=== PATIENT | male | born 1980 | race Caucasian/White ===

== ENCOUNTER 2016-08-23 17:56 | Inpatient (IN) | payer SELFPAY ==
[2016-08-23] MEDS ORDERED: NS 1000 ML 1,000 ML ONE ×3 (18:03→20:16)
[2016-08-23] MEDS ORDERED: NS 1000 ML 1,000 ML IV ONE ×3 (18:10→20:15)
[2016-08-23 18:25] LABS: PLATELET COUNT 402 X10^3/uL (150.0-450.0)
[2016-08-23 18:29] LABS: ABG BASE EXCESS -22.6 mmol/L (-2.0-2.0)
[2016-08-23 18:31] LABS: ABG HCO3 4.1 mmol/L (22-26)
[2016-08-23 18:34] LABS: BASOPHILS # (AUTO) 0.2 X10^3/uL (0.0-0.1); BASOPHILS % (AUTO) 0.6 % (0.2-1.0); HEMATOCRIT 46.1 % (42.0-54.0); HEMOGLOBIN 15.1 g/dL (13.5-18.0); LYMPHOCYTES # (AUTO) 1.9 X10^3/uL (1.3-2.9); LYMPHOCYTES % (AUTO) 4.9 % (21.0-51.0); MEAN CORPUSCULAR HEMOGLOBIN 29.7 pg (27.0-34.0); MEAN CORPUSCULAR HGB CONC 32.8 g/dL (33.0-35.0); MEAN CORPUSCULAR VOLUME 90.5 fL (80.0-100.0); MONOCYTES # (AUTO) 2.7 x10^3/uL (0.3-0.8); MONOCYTES % (AUTO) 7.1 % (0.0-13.0); NEUTROPHILS # (AUTO) 33.4 x10^3/uL (2.2-4.8); NEUTROPHILS % (AUTO) 87.4 % (42.0-75.0); RED CELL DISTRIBUTION WIDTH 13.6 % (11.6-16.5); SERUM ACETONE MODERATE (NEGATIVE)
[2016-08-23 18:36] LABS: BLOOD UREA NITROGEN 13 mg/dL (7-18); CALCIUM 10.2 mg/dL (8.5-10.1); CHLORIDE 95 mmol/L (98-107); COR NA(FOR HYPERGLY) 137 mmol/L (136-145); CREATININE 1.25 mg/dL (0.70-1.30); GLUCOSE 480 mg/dL (65-99); SODIUM 128 mmol/L (136-145); eGFR BLACK RACES > 60 (>60); eGFR NON BLACK RACES > 60 (>60)
[2016-08-23 18:41] LABS: ALANINE AMINOTRANSFERASE 13 Units/L (12-78); ALBUMIN 2.9 g/dL (3.4-5.0); ALKALINE PHOSPHATASE 169 Units/L (46-116); ASPARTATE AMINO TRANSFERASE 8 Units/L (15-37); COR CA(FOR HYPOALB) 11.1 mg/dL (8.5-10.1); TOTAL PROTEIN 8.5 g/dL (6.4-8.2)
[2016-08-23 18:54] LABS: WHITE BLOOD COUNT 38.2 X10^3/uL (3.6-10.0)
[2016-08-23 19:13] LABS: BAND NEUTROPHILS % 1 % (0-10)
[2016-08-23 19:14] LABS: PLATELET MORPHOLOGY COMMENT NORMAL (NORMAL)
--- NOTE | 2016-08-23 19:45 | DR.GENAD ---
HPI - PCP Primary Care Physician: Nish DONALDSON - Complaint/Symptoms Chief Complaint Doctors Comments: Patient states that he has had DM for four to five years. He was on glyburide and metformin up to five months ago and he stopped taking his medication because he was involved in a relationship. This morning at 0300 he started vomiting and not feeling well and came to the ED. Chief Complaint:: PT. C/O N/V SINCE 3 AM. PT. C/O FATIGUE AND SHORTNESS OF BREATH. PT. SAYS HE HAS TWO RISINGS TO THE LEFT SIDE OF HIS GROIN WHICH ARE NOW BEGINNING TO DRAIN. THE AREA IS REDDENED AND HOT TO TOUCH. - Source History Provided: Patient - Mode of Arrival Mode of Arrival: Ambulatory - Timing Onset of Chief Complaint: 08/23/16 PMH - PMH Past Medical History: Yes Past Medical History: Diabetes, Dyslipidemia, Hypertension Past Surgical History: No Surgical History: No History - Family History History of Family Medical Conditions: No - Social History Does patient currently use any type of tobacco product: Yes Have you used tobacco products in the last 12 months: Yes Type of Tobacco Use: Cigarettes Does any household member use tobacco: No Alcohol Use: Rarely Do you use any recreational Drugs:: No Lives With: Family Lives Where: Home - infectious screening In the last 2 months have you had wt loss of >10#?: NO Have you had fever, night sweats or hemotysis?: No Have you traveled outside the country in the last 6 months?: No Isolation: Standard ROS - Review of Systems Constitutional: No Symptoms Reported Eyes: No Symptoms Reported ENTM: No Symptoms Reported. negative: Loose Teeth (upper extractions) Respiratoy: No Symptoms Reported Cardiovascular: No Symptoms Reported Gastrointestinal/Abdominal: No Symptoms Reported Genitourinary: No Symptoms Reported Neurological: No Symptoms Reported Musculoskeletal: No Symptoms Reported Integumentary: Rash (pustules on left lower abdomen, carbuncle ruptured) Hematologic/Lymphatic: No Symptoms Reported Endocrine: No Symptoms Reported Psychiatric: No Symptoms Reported All Other Systems: Reviewed and Negative PE - Vital Signs Vitals: Temperature 97.4 F Pulse Rate [Left Brachial] 127 Pulse Rate 148 Respiratory Rate 30 Blood Pressure [Left Arm] 158/87 Blood Pressure 151/82 O2 Sat by Pulse Oximetry 99 - General Limitations: No Limitations General Appearance: Alert - Head Head Exam: Normal Inspection, Atraumatic - Eyes Eye exam: Normal Appearance, PERRL, EOMI - Chest Chest Inspection: Normal Inspection, Symmetric Chest Wall Rise - Respiratory Respiratory Exam: Normal Lung Sounds Bilat (Kussmaul) Respiratory Exam: Bilateral Clear to Auscultation - Cardiovascular Cardiovascular Exam: Tachycardia - Abdominal Exam Abdominal Exam: Normal Inspection, Distention (folliculitis left lower abdomen) Abdominal Tenderness: LLQ - Extremities Extremities Exam: Normal Inspection - Back Back Exam: Normal Inspection - Neurologic Neurological Exam: Alert, Oriented X3, CN II-XII Intact - Psychiatric Psychiatric Exam: Normal Affect - Skin Skin Exam: Warm, Dry, Intact Course - Reevaluation 1st: Improved - Consultation Called: 08:00 (Admit, instructions given) ROR - Labs Reviewed Result Diagrams: 08/23/16 18:10 08/23/16 18:10 Laboratory: 08/23/16 18:25 Groin Gram Stain - Final WBC 38.2 X10^3/uL (3.6-10.0) H* 08/23/16 18:10 RBC 5.10 X10^6/uL (4.7-6.0) 08/23/16 18:10 Hgb 15.1 g/dL (13.5-18.0) 08/23/16 18:10 Hct 46.1 % (42.0-54.0) 08/23/16 18:10 MCV 90.5 fL (80.0-100.0) 08/23/16 18:10 MCH 29.7 pg (27.0-34.0) 08/23/16 18:10 MCHC 32.8 g/dL (33.0-35.0) L 08/23/16 18:10 RDW 13.6 % (11.6-16.5) 08/23/16 18:10 Plt Count 402 X10^3/uL (150.0-450.0) 08/23/16 18:10 Plt Count Comment Adequate (ADEQUATE) 08/23/16 18:10 MPV 9.0 fL (7.4-11.0) 08/23/16 18:10 Neut % 87.4 % (42.0-75.0) H 08/23/16 18:10 Lymph % 4.9 % (21.0-51.0) L 08/23/16 18:10 [place] % 7.1 % (0.0-13.0) 08/23/16 18:10 Eos % 0.0 % (0.9-2.9) L 08/23/16 18:10 Baso % 0.6 % (0.2-1.0) 08/23/16 18:10 Neut # 33.4 x10^3/uL (2.2-4.8) H 08/23/16 18:10 Lymph # 1.9 X10^3/uL (1.3-2.9) 08/23/16 18:10 [place] # 2.7 x10^3/uL (0.3-0.8) H 08/23/16 18:10 Eos # 0.0 x10^3/uL (0.0-0.2) 08/23/16 18:10 Baso # 0.2 X10^3/uL (0.0-0.1) H 08/23/16 18:10 Absolute Nucleated RBC 0.0 /100WBC 08/23/16 18:10 Total Counted 100 08/23/16 18:10 Neutrophils % (Manual) 83 % (39-76) H 08/23/16 18:10 Band Neutrophils % 1 % (0-10) 08/23/16 18:10 Lymphocytes % (Manual) 10 % (13-43) L 08/23/16 18:10 Monocytes % (Manual) 6 % (4-9) 08/23/16 18:10 Plt Morphology Comment Normal (NORMAL) 08/23/16 18:10 RBC Morphology Normal (NORMAL) 08/23/16 18:10 Sample Site Left brachial 08/23/16 18:21 ABG pH 7.140 (7.35-7.45) L* 08/23/16 18:21 ABG pCO2 12.0 mmHg (35.0-45.0) L* 08/23/16 18:21 ABG pO2 111.0 mmHg (80.0-100.0) H 08/23/16 18:21 ABG HCO3 4.1 mmol/L (22-26) L* 08/23/16 18:21 ABG O2 Saturation 97.0 % (90-100) 08/23/16 18:21 ABG Base Excess -22.6 mmol/L (-2.0-2.0) L 08/23/16 18:21 Slick Test Na 08/23/16 18:21 A-a Gradient 24.0 mmHg 08/23/16 18:21 FiO2 21.000 08/23/16 18:21 Blood Gas Comments Zack well aw 08/23/16 18:21 Sodium 128 mmol/L (136-145) L 08/23/16 18:10 Corrected Sodium 137 mmol/L (136-145) 08/23/16 18:10 Potassium 4.6 mmol/L (3.5-5.1) 08/23/16 18:10 Chloride 95 mmol/L (98-107) L 08/23/16 18:10 Carbon Dioxide 5.0 mmol/L (21-32) L* 08/23/16 18:10 BUN 13 mg/dL (7-18) 08/23/16 18:10 Creatinine 1.25 mg/dL (0.70-1.30) 08/23/16 18:10 Est GFR (MDRD) Af Amer > 60 (>60) 08/23/16 18:10 Est GFR (MDRD) Non-Af > 60 (>60) 08/23/16 18:10 Glucose 480 mg/dL (65-99) H 08/23/16 18:10 Calcium 10.2 mg/dL (8.5-10.1) H 08/23/16 18:10 Corrected Calcium 11.1 mg/dL (8.5-10.1) H 08/23/16 18:10 Phosphorus 3.5 mg/dL (2.6-4.7) 08/23/16 19:10 Magnesium 1.7 mg/dL (1.7-2.9) 08/23/16 19:10 Total Bilirubin 0.40 mg/dL (0.2-1.0) 08/23/16 18:10 AST 8 Units/L (15-37) L 08/23/16 18:10 ALT 13 Units/L (12-78) 08/23/16 18:10 Alkaline Phosphatase 169 Units/L (46-116) H 08/23/16 18:10 C-Reactive Protein 1226.70 mg/L (0-3.0) H 08/23/16 18:10 Total Protein 8.5 g/dL (6.4-8.2) H 08/23/16 18:10 Albumin 2.9 g/dL (3.4-5.0) L 08/23/16 18:10 Globulin 5.6 g/dL (2.5-4.5) H 08/23/16 18:10 Albumin/Globulin Ratio 0.5 Ratio (1.1-2.1) L 08/23/16 18:10 Acetone, Semi-Quant Moderate (NEGATIVE) H 08/23/16 18:10 - Diagnosis Discharge Problem: DKA (diabetic ketoacidoses) Qualifiers: Diabetes mellitus type: type 2 Diabetes mellitus complication detail: without coma Qualified Code(s): E13.10 - Other specified diabetes mellitus with ketoacidosis without coma - Discharge Plan Condition: Stable - Follow ups/Referrals Follow ups/Referrals: MELVIN DONALDSON [Primary Care Provider] - 3 days - Instructions
[2016-08-23 19:46] LABS: MAGNESIUM 1.7 mg/dL (1.7-2.9); PHOSPHORUS 3.5 mg/dL (2.6-4.7)
[2016-08-23] MEDS ORDERED: SODIUM BICARBONATE 8.4% INJ ADULT ONE (20:16)
[2016-08-23 20:21] LABS: BILIRUBIN,URINE NEGATIVE (NEGATIVE); BLOOD/HEMOGLOBIN,URINE 3+ (NEGATIVE); GLUCOSE, URINE 4+ (NEGATIVE); KETONES,URINE 4+ (NEGATIVE); LEUKOCYTE ESTERASE ,URINE NEGATIVE (NEGATIVE); NITRITES,URINE NEGATIVE (NEGATIVE); PROTEIN,URINE 3+ (NEGATIVE); UROBILINOGEN,URINE NORMAL (NORMAL)
[2016-08-23] MEDS ORDERED: HUMULIN R IV ONE (20:28)
--- NOTE | 2016-08-23 20:28 | RAD ---
Chest AP portable Indication: Dyspnea. Diabetes ketoacidosis. Findings: Heart size is normal for technique and body habitus. There is no pneumothorax or effusion. No dense consolidation is seen. Vague right infrahilar opacity could represent developing infiltrat e. Overlapping vessels may appear similar. Impression: Question right infrahilar infiltrate. Followup with PA and lateral chest to clarify. Reported By:
[2016-08-23] MEDS ORDERED: HUMULIN R ONE ×2 (20:34→20:56)
[2016-08-23 20:41] LABS: APPEARANCE,URINE SLIGHTLY HAZY (CLEAR); BACTERIA,URINE 1+ /HPF (NEGATIVE); COLOR,URINE YELLOW (YELLOW); GRANULAR CASTS,URINE FEW /LPF (NEGATIVE); RBC,URINE 0-3 /HPF (NEGATIVE); SQUAMOUS EPITHELIAL CELL,UR RARE /HPF (NEGATIVE)
[2016-08-23] MEDS ORDERED: NS 100 ML IV 100 ML IV ONE (20:56)
[2016-08-23] MEDS: HUMULIN R 100 UNITS in NS 100 ML IV 100 ML IV PRN (21:25)
[2016-08-23 21:49] LABS: ABG ALLEN TEST POS; ABG BASE EXCESS -21.4 mmol/L (-2.0-2.0); FRACTIONATED INSPIRED OXYGEN 21
[2016-08-23 21:51] LABS: BLOOD UREA NITROGEN 12 mg/dL (7-18); CALCIUM 9.5 mg/dL (8.5-10.1); CHLORIDE 101 mmol/L (98-107); COR NA(FOR HYPERGLY) 140 mmol/L (136-145); GLUCOSE 364 mg/dL (65-99); SODIUM 134 mmol/L (136-145); eGFR BLACK RACES > 60 (>60); eGFR NON BLACK RACES > 60 (>60)
[2016-08-23 21:55] LABS: CARBON DIOXIDE 6.9 mmol/L (21-32)
[2016-08-23 21:58] VITALS: BMI 36.6
[2016-08-24 01:13] LABS: BLOOD UREA NITROGEN 10 mg/dL (7-18); CALCIUM 9.3 mg/dL (8.5-10.1); CHLORIDE 103 mmol/L (98-107); COR NA(FOR HYPERGLY) 140 mmol/L (136-145); CREATININE 0.94 mg/dL (0.70-1.30); GLUCOSE 261 mg/dL (65-99); SODIUM 136 mmol/L (136-145); eGFR BLACK RACES > 60 (>60); eGFR NON BLACK RACES > 60 (>60)
[2016-08-24 01:15] LABS: CARBON DIOXIDE 13.4 mmol/L (21-32)
[2016-08-24] MEDS ORDERED: NS + KCL 20 MEQ/L 1,000 ML IV ONE (01:19)
[2016-08-24] MEDS: NS + KCL 20 MEQ/L 1,000 ML IV SCH ×6 (01:24→22:30)
--- NOTE | 2016-08-24 02:25 | RAD ---
EXAM: Chest X-ray INDICATION: Shortness of breath COMPARISION: Prior exam from August 23, 2016 TECHNIQUE: PA and Lat, 2 view FINDINGS: The lungs are clear and the lung volumes are within normal limits. No pleural effusion or pneumothor ax. The cardiac silhouette and mediastinum are normal. The regional skeleton is intact. IMPRESSION: Normal Chest X-Ray Reported By:
[2016-08-24 05:03] LABS: ABG ALLEN TEST POS; ABG BASE EXCESS -14.5 mmol/L (-2.0-2.0); ABG HCO3 10.6 mmol/L (22-26); FRACTIONATED INSPIRED OXYGEN 21
[2016-08-24 06:32] LABS: BLOOD UREA NITROGEN 10 mg/dL (7-18); CALCIUM 9.3 mg/dL (8.5-10.1); CHLORIDE 104 mmol/L (98-107); COR NA(FOR HYPERGLY) 137 mmol/L (136-145); GLUCOSE 228 mg/dL (65-99); SODIUM 134 mmol/L (136-145); eGFR BLACK RACES > 60 (>60); eGFR NON BLACK RACES > 60 (>60)
[2016-08-24 06:43] LABS: BASOPHILS # (AUTO) 0.1 X10^3/uL (0.0-0.1); BASOPHILS % (AUTO) 0.5 % (0.2-1.0); EOSINOPHILS % (AUTO) 0.1 % (0.9-2.9); HEMATOCRIT 37.7 % (42.0-54.0); HEMOGLOBIN 12.8 g/dL (13.5-18.0); LYMPHOCYTES # (AUTO) 1.7 X10^3/uL (1.3-2.9); LYMPHOCYTES % (AUTO) 7.5 % (21.0-51.0); MEAN CORPUSCULAR HGB CONC 33.9 g/dL (33.0-35.0); MEAN CORPUSCULAR VOLUME 88.4 fL (80.0-100.0); MEAN PLATELET VOLUME 8.9 fL (7.4-11.0); MONOCYTES # (AUTO) 1.5 x10^3/uL (0.3-0.8); MONOCYTES % (AUTO) 6.9 % (0.0-13.0); NEUTROPHILS # (AUTO) 18.9 x10^3/uL (2.2-4.8); PLATELET COUNT 256 X10^3/uL (150.0-450.0); RED BLOOD COUNT 4.26 X10^6/uL (4.7-6.0); RED CELL DISTRIBUTION WIDTH 13.4 % (11.6-16.5)
[2016-08-24 06:47] LABS: CARBON DIOXIDE 11.1 mmol/L (21-32); WHITE BLOOD COUNT 22.2 X10^3/uL (3.6-10.0)
[2016-08-24 06:58] LABS: BAND NEUTROPHILS % 6 % (0-10)
[2016-08-24 06:59] LABS: PLATELET MORPHOLOGY COMMENT NORMAL (NORMAL)
[2016-08-24 09:41] LABS: BLOOD UREA NITROGEN 10 mg/dL (7-18); CALCIUM 8.8 mg/dL (8.5-10.1); CHLORIDE 102 mmol/L (98-107); COR NA(FOR HYPERGLY) 136 mmol/L (136-145); CREATININE 0.72 mg/dL (0.70-1.30); GLUCOSE 310 mg/dL (65-99); SODIUM 131 mmol/L (136-145); eGFR BLACK RACES > 60 (>60); eGFR NON BLACK RACES > 60 (>60)
[2016-08-24 09:48] LABS: CARBON DIOXIDE 11.4 mmol/L (21-32)
[2016-08-24 13:24] LABS: ABG BASE EXCESS -13.3 mmol/L (-2.0-2.0); ABG HCO3 10.8 mmol/L (22-26)
[2016-08-24 13:25] LABS: ABG ALLEN TEST POS
[2016-08-24] MEDS ORDERED: MORPHINE SULFATE INJ 2 MG IVP PRN (13:57)
[2016-08-24] MEDS: LEVAQUIN PREMIX IV 500 MG 500 MG/100 ML BAG IV SCH (14:18)
--- NOTE | 2016-08-24 15:28 | VAS ---
HISTORY: Left lower extremity redness and swelling Study: Left lower extremity venous Doppler Comparison: None TECHNIQUE: Multiple pack scale and color flow Doppler images of the deep venous system were obtaine d of the left lower extremity. FINDINGS: The deep venous system of the left lower extremity was evaluated from the level of the common femora l vein through the popliteal vein. Normal color flow and augmentation can be observed. In addition , normal compression is seen throughout the deep venous system. IMPRESSION: 1. Negative for DVT. Reported By:
[2016-08-24] MEDS: HUMULIN R 100 UNITS in NS 100 ML IV 100 ML IV PRN (17:04)
--- NOTE | 2016-08-24 18:13 | DR.H&P ---
H&P - History & Physical for Day of: H&P Date: 08/23/16 - Chief Complaint Chief Complaint: weakness, "boils to groin" - Allergies Allergies/Adverse Reactions: Allergies Allergy/AdvReac Type Severity Reaction Status Date / Time No Known Drug Allergy Allergy Verified 08/23/16 18:00 - History of Present Illness History of Present Illness: patient is a 36-year-old white male who presented to the emergency room with complaints of rash/moles to his groin. Patient complains of weakness on his stomach for several days. Patient has a past medical history of diabetes and hypertension but has not been on medication for several months. Patient states the onset of rash has been approximately a week. Now patient has increased redness and multiple pustules to left inner thigh and left groin. Labs collected in the emergency room revealed patient was in DKA. Patient was admitted to ICU for IV hydration and insulin drip. - Past Medical History Past Medical History: Diabetes, Dyslipidemia, Hypertension - Past Surgical History Surgical History: No History - Family History Family Medical History: Diabetes Mellitus, Hypertension - Social History Does patient currently use any type of tobacco product: Yes Have you used tobacco products in the last 12 months: Yes Type of Tobacco Use: Cigarettes How many years tobacco product used: 13 Does any household member use tobacco: No Alcohol Use: Occasionally Drug Use: None - Medications Home Medications: NK [NK] 08/23/16 [History Confirmed 08/23/16] - Review of Systems Constitutional: Weakness ENT: No Symptoms Reported Respiratory: No Symptoms Reported Cardiovascular: No Symptoms Reported Gastrointestinal: Nausea, Vomiting Genitourinary: Frequency Musculoskeletal: Leg Pain Skin: Rash Neurological: Weakness - Physical Exam Vital Signs: Temperature 99.7 F Pulse Rate [Right Brachial] 116 Respiratory Rate 20 Blood Pressure [Right Arm] 112/66 O2 Sat by Pulse Oximetry 99 Oriented: Normal Eyes: Normal Ear: Normal Nose: Normal Throat: Dry Respiratory: Clear Throughout Cardiovascular: Normal, Edema (bilater le +2) : Normal Auscultation: Bowel Sounds: Normal Palpation: Normal Tenderness: Normal Skin: Rash (scattered pustules to left anaid with larger 1cm abcess to groin with purulent d/c severe tenderness), Red (large area of rednes with increase warmth to left midthigh) Musculoskeletal: Leg Psychiatric: Anxiety Speech Pattern: Clear, Appropriate - Assessment/Plan (1) DKA (diabetic ketoacidoses) Qualifiers: Diabetes mellitus type: type 2 Diabetes mellitus complication detail: without coma Qualified Code(s): E13.10 - Other specified diabetes mellitus with ketoacidosis without coma Status: Acute Plan: admit icu, iv insulin drip and iv hydration. bs per protocol. bp control , repeat am labs, cardiac monitoring. abg, o2 (2) Hyponatremia Status: Acute (3) Cellulitis Qualifiers: Site of cellulitis: S Site of cellulitis of extremity: S Site of cellulitis of trunk: S Laterality: L Status: Acute
--- NOTE | 2016-08-24 18:18 | PCM.PROG ---
Progress Note - Progress Note for Day of Date: 08/24/16 - Subjective Subjective: patient complaining of nausea and severe left groin and thigh pain. Patient is a 36-year-old white male who was admitted late last night from the emergency room in [facility] BEDS AT THE [facility]. Plan to obtain ultrasound of left lower extremity and start IV Levaquin or cellulitis. Will repeat a.m. labs and continue blood sugar control and pain control and IV hydration - Past Medical Family Social History Past Med/Fam/Surg Hx: No changes since H&P Allergies: Allergies No Known Drug Allergy Allergy (Verified 08/23/16 18:00) - Review of Systems ROS: No change since H&P - Vital Signs and I&O's Vital Signs: Temperature 99.7 F Pulse Rate [Right Brachial] 116 Respiratory Rate 20 Blood Pressure [Right Arm] 112/66 O2 Sat by Pulse Oximetry 99 Intake and Output: Intake & Output 08/22/16 08/23/16 08/24/16 08/25/16 11:59 11:59 11:59 11:59 Intake Total 1770 2140 Output Total 1560 800 Balance 210 1340 - Physical Exam Oriented: Normal Eyes: Normal Ear: Normal Nose: Normal Throat: Dry Respiratory: Normal Cardiovascular: Normal, Edema (bilater le +2) : Normal Auscultation: Bowel Sounds: Normal Tenderness: Normal Skin: Rash (scattered pustules to left anaid with larger 1cm abcess to groin with purulent d/c severe tenderness), Red (large area of rednes with increase warmth to left midthigh) Musculoskeletal: Leg Psychiatric: Anxiety Speech Pattern: Clear, Appropriate - Laboratory and Diagnostics Result Diagrams: 08/24/16 05:40 08/24/16 09:10 Labs: 08/23/16 21:00 Urine,Clean Catch Urine Culture - Preliminary Laboratory WBC 22.2 X10^3/uL (3.6-10.0) H* 08/24/16 05:40 RBC 4.26 X10^6/uL (4.7-6.0) L 08/24/16 05:40 Hgb 12.8 g/dL (13.5-18.0) L 08/24/16 05:40 Hct 37.7 % (42.0-54.0) L 08/24/16 05:40 MCV 88.4 fL (80.0-100.0) 08/24/16 05:40 MCH 30.0 pg (27.0-34.0) 08/24/16 05:40 MCHC 33.9 g/dL (33.0-35.0) 08/24/16 05:40 RDW 13.4 % (11.6-16.5) 08/24/16 05:40 Plt Count 256 X10^3/uL (150.0-450.0) 08/24/16 05:40 Plt Count Comment Adequate (ADEQUATE) 08/24/16 05:40 MPV 8.9 fL (7.4-11.0) 08/24/16 05:40 Neut % 85.0 % (42.0-75.0) H 08/24/16 05:40 Lymph % 7.5 % (21.0-51.0) L 08/24/16 05:40 [place] % 6.9 % (0.0-13.0) 08/24/16 05:40 Eos % 0.1 % (0.9-2.9) L 08/24/16 05:40 Baso % 0.5 % (0.2-1.0) 08/24/16 05:40 Neut # 18.9 x10^3/uL (2.2-4.8) H 08/24/16 05:40 Lymph # 1.7 X10^3/uL (1.3-2.9) 08/24/16 05:40 [place] # 1.5 x10^3/uL (0.3-0.8) H 08/24/16 05:40 Eos # 0.0 x10^3/uL (0.0-0.2) 08/24/16 05:40 Baso # 0.1 X10^3/uL (0.0-0.1) 08/24/16 05:40 Absolute Nucleated RBC 0.0 /100WBC 08/24/16 05:40 Total Counted 100 08/24/16 05:40 Neutrophils % (Manual) 74 % (39-76) 08/24/16 05:40 Band Neutrophils % 6 % (0-10) 08/24/16 05:40 Lymphocytes % (Manual) 16 % (13-43) 08/24/16 05:40 Monocytes % (Manual) 4 % (4-9) 08/24/16 05:40 Plt Morphology Comment Normal (NORMAL) 08/24/16 05:40 RBC Morphology Normal (NORMAL) 08/24/16 05:40 Sample Site Rra 08/24/16 13:00 ABG pH 7.320 (7.35-7.45) L 08/24/16 13:00 ABG pCO2 21.0 mmHg (35.0-45.0) L 08/24/16 13:00 ABG pO2 68.0 mmHg (80.0-100.0) L 08/24/16 13:00 ABG HCO3 10.8 mmol/L (22-26) L* 08/24/16 13:00 ABG O2 Saturation 92.0 % (90-100) 08/24/16 13:00 ABG Base Excess -13.3 mmol/L (-2.0-2.0) L 08/24/16 13:00 Slick Test Pos 08/24/16 13:00 A-a Gradient 55.0 mmHg 08/24/16 13:00 FiO2 21.000 08/24/16 13:00 Blood Gas Comments Zack wel cs 08/24/16 13:00 Sodium 131 mmol/L (136-145) L 08/24/16 09:10 Corrected Sodium 136 mmol/L (136-145) 08/24/16 09:10 Potassium 4.3 mmol/L (3.5-5.1) 08/24/16 09:10 Chloride 102 mmol/L (98-107) 08/24/16 09:10 Carbon Dioxide 11.4 mmol/L (21-32) L* 08/24/16 09:10 BUN 10 mg/dL (7-18) 08/24/16 09:10 Creatinine 0.72 mg/dL (0.70-1.30) 08/24/16 09:10 Est GFR (MDRD) Af Amer > 60 (>60) 08/24/16 09:10 Est GFR (MDRD) Non-Af > 60 (>60) 08/24/16 09:10 Glucose 310 mg/dL (65-99) H 08/24/16 09:10 Calcium 8.8 mg/dL (8.5-10.1) 08/24/16 09:10 Corrected Calcium 11.1 mg/dL (8.5-10.1) H 08/23/16 18:10 Phosphorus 3.5 mg/dL (2.6-4.7) 08/23/16 19:10 Magnesium 1.7 mg/dL (1.7-2.9) 08/23/16 19:10 Total Bilirubin 0.40 mg/dL (0.2-1.0) 08/23/16 18:10 AST 8 Units/L (15-37) L 08/23/16 18:10 ALT 13 Units/L (12-78) 08/23/16 18:10 Alkaline Phosphatase 169 Units/L (46-116) H 08/23/16 18:10 C-Reactive Protein 1226.70 mg/L (0-3.0) H 08/23/16 18:10 Total Protein 8.5 g/dL (6.4-8.2) H 08/23/16 18:10 Albumin 2.9 g/dL (3.4-5.0) L 08/23/16 18:10 Globulin 5.6 g/dL (2.5-4.5) H 08/23/16 18:10 Albumin/Globulin Ratio 0.5 Ratio (1.1-2.1) L 08/23/16 18:10 Specimen Type Clean catch urine 08/23/16 20:03 Urine Color Yellow (YELLOW) 08/23/16 20:03 Urine Appearance Slightly hazy (CLEAR) 08/23/16 20:03 Urine pH 5.0 (5.0 - 8.0) 08/23/16 20:03 Ur Specific Carlos 1.020 (1.000-1.030) 08/23/16 20:03 Urine Protein 3+ (NEGATIVE) 08/23/16 20:03 Urine Glucose (UA) 4+ (NEGATIVE) 08/23/16 20:03 Urine Ketones 4+ (NEGATIVE) 08/23/16 20:03 Urine Occult Blood 3+ (NEGATIVE) 08/23/16 20:03 Urine Nitrite Negative (NEGATIVE) 08/23/16 20:03 Urine Bilirubin Negative (NEGATIVE) 08/23/16 20:03 Urine Acetone Large (NEGATIVE) 08/24/16 05:20 Urine Urobilinogen Normal (NORMAL) 08/23/16 20:03 Ur Leukocyte Esterase Negative (NEGATIVE) 08/23/16 20:03 Urine RBC 0-3 /HPF (NEGATIVE) 08/23/16 20:03 Urine WBC 0-3 /HPF (NEGATIVE) 08/23/16 20:03 Ur Squamous Epith Cells Rare /HPF (NEGATIVE) 08/23/16 20:03 Urine Bacteria 1+ /HPF (NEGATIVE) 08/23/16 20:03 Granular Casts Few /LPF (NEGATIVE) 08/23/16 20:03 Ur Culture Indicated? No/not indicated 08/23/16 20:03 Acetone, Semi-Quant Moderate (NEGATIVE) H 08/23/16 18:10 - Plan (1) DKA (diabetic ketoacidoses) Status: Acute Qualifiers: Diabetes mellitus type: type 2 Diabetes mellitus complication detail: without coma Qualified Code(s): E13.10 - Other specified diabetes mellitus with ketoacidosis without coma Plan: CONTINUE iv insulin drip and iv hydration. bs per protocol. bp control, repeat am labs, cardiac monitoring. abg, o2, SERUM ACETONE Q AM (2) Hyponatremia Status: Acute Plan: CONTINUE IV HYDRATION, ENCOURAGE ORAL HYDRATION. CHECK BMP THIS AFTERNOON. REPEAT AM CMP (3) Cellulitis Status: Acute Qualifiers: Site of cellulitis: S Site of cellulitis of extremity: S Site of cellulitis of trunk: S Laterality: L Plan: WOUND CULTURE, IV LEVAQUIN. REPEAT AM LABS
[2016-08-24 19:05] LABS: HEMOGLOBIN A1C 11.7 % (4.5-6.2)
[2016-08-24 19:08] LABS: BLOOD UREA NITROGEN 8 mg/dL (7-18); CALCIUM 9.1 mg/dL (8.5-10.1); CHLORIDE 100 mmol/L (98-107); COR NA(FOR HYPERGLY) 135 mmol/L (136-145); CREATININE 0.65 mg/dL (0.70-1.30); GLUCOSE 222 mg/dL (65-99); SODIUM 132 mmol/L (136-145); eGFR BLACK RACES > 60 (>60); eGFR NON BLACK RACES > 60 (>60)
[2016-08-24 19:10] LABS: SERUM ACETONE SMALL (NEGATIVE)
[2016-08-24 19:16] LABS: LACTIC ACID 1.3 mmol/L (0.4-2.0)
[2016-08-24 19:30] LABS: FREE T4 (FREE THYROXINE) 1.09 ng/dL (0.76-1.46); TSH (3RD GENERATION) 0.507 uIU/mL (0.358-3.74)
[2016-08-24] MEDS: SNACK - Diabetic Appropriate PO SCH (19:56)
[2016-08-24] MEDS ORDERED: SNACK - Diabetic Appropriate PO SCH (20:00)
[2016-08-24 21:54] LABS: ABG BASE EXCESS -12.5 mmol/L (-2.0-2.0)
[2016-08-24] MEDS: LEVEMIR SC SCH (21:58)
[2016-08-24] MEDS: NORCO 7.5/325 MG TAB PO PRN (22:45)
[2016-08-25] MEDS: NS + KCL 20 MEQ/L 1,000 ML IV SCH ×5 (04:01→20:17)
[2016-08-25 06:21] LABS: BASOPHILS # (AUTO) 0.1 X10^3/uL (0.0-0.1); BASOPHILS % (AUTO) 0.6 % (0.2-1.0); EOSINOPHILS # (AUTO) 0.1 x10^3/uL (0.0-0.2); EOSINOPHILS % (AUTO) 0.6 % (0.9-2.9); HEMATOCRIT 37.1 % (42.0-54.0); HEMOGLOBIN 12.6 g/dL (13.5-18.0); LYMPHOCYTES # (AUTO) 1.8 X10^3/uL (1.3-2.9); LYMPHOCYTES % (AUTO) 10.7 % (21.0-51.0); MEAN CORPUSCULAR HEMOGLOBIN 29.8 pg (27.0-34.0); MEAN CORPUSCULAR VOLUME 87.9 fL (80.0-100.0); MEAN PLATELET VOLUME 8.8 fL (7.4-11.0); MONOCYTES # (AUTO) 1.1 x10^3/uL (0.3-0.8); MONOCYTES % (AUTO) 6.8 % (0.0-13.0); NEUTROPHILS # (AUTO) 13.7 x10^3/uL (2.2-4.8); NEUTROPHILS % (AUTO) 81.3 % (42.0-75.0); PLATELET COUNT 247 X10^3/uL (150.0-450.0); RED BLOOD COUNT 4.23 X10^6/uL (4.7-6.0); RED CELL DISTRIBUTION WIDTH 13.4 % (11.6-16.5); WHITE BLOOD COUNT 16.9 X10^3/uL (3.6-10.0)
[2016-08-25 06:34] LABS: ALANINE AMINOTRANSFERASE 15 Units/L (12-78); ALBUMIN 1.8 g/dL (3.4-5.0); ALKALINE PHOSPHATASE 116 Units/L (46-116); ASPARTATE AMINO TRANSFERASE 16 Units/L (15-37); BLOOD UREA NITROGEN 7 mg/dL (7-18); CALCIUM 8.5 mg/dL (8.5-10.1); CARBON DIOXIDE 15.7 mmol/L (21-32); CHLORIDE 102 mmol/L (98-107); COR CA(FOR HYPOALB) 10.3 mg/dL (8.5-10.1); COR NA(FOR HYPERGLY) 135 mmol/L (136-145); CREATININE 0.61 mg/dL (0.70-1.30); GLUCOSE 186 mg/dL (65-99); SODIUM 133 mmol/L (136-145); TOTAL PROTEIN 6.3 g/dL (6.4-8.2); eGFR BLACK RACES > 60 (>60); eGFR NON BLACK RACES > 60 (>60)
[2016-08-25 07:07] LABS: BAND NEUTROPHILS % 4 % (0-10)
[2016-08-25 07:08] LABS: ERYTHROCYTE SEDIMENTATION RATE 85 MM/HOUR (0-15); PLATELET MORPHOLOGY COMMENT NORMAL (NORMAL)
[2016-08-25] MEDS: LEVAQUIN PREMIX IV 500 MG 500 MG/100 ML BAG IV SCH (09:15)
[2016-08-25] MEDS ORDERED: NS 1000 ML 1,000 ML IV ONE (18:41)
--- NOTE | 2016-08-25 18:44 | PCM.PROG ---
Progress Note - Progress Note for Day of Date: 08/25/16 - Subjective Subjective: patient complaining of nausea and severe left groin and thigh pain. Patient is a 36-year-old white male who was admitted late last night from the emergency room in [facility]. patient was started on Levemir last p.m., blood sugar slightly improved through the night. We'll continue IV hydration, increased redness to left thigh. Levaquin and start vancomycin. Continue wound care, pain control. Repeat a.m. labs - Past Medical Family Social History Past Med/Fam/Surg Hx: No changes since H&P Allergies: Allergies No Known Drug Allergy Allergy (Verified 08/23/16 18:00) - Review of Systems ROS: No change since H&P - Vital Signs and I&O's Vital Signs: Temperature 98.8 F Pulse Rate [Right Brachial] 114 Respiratory Rate 20 Blood Pressure [Right Arm] 134/74 O2 Sat by Pulse Oximetry 99 Intake and Output: Intake & Output 08/23/16 08/24/16 08/25/16 08/26/16 11:59 11:59 11:59 11:59 Intake Total 1770 5685 1978 Output Total 1560 2100 1050 Balance 210 3585 928 - Physical Exam Oriented: Normal Eyes: Normal Ear: Normal Nose: Normal Throat: Dry Respiratory: Normal Cardiovascular: Normal, Edema (bilater le +2) : Normal Auscultation: Bowel Sounds: Normal Tenderness: Normal Skin: Rash (scattered pustules to left anaid with larger 1cm abcess to groin with purulent d/c severe tenderness), Red (large area of rednes with increase warmth to left midthigh) Musculoskeletal: Leg Psychiatric: Anxiety Speech Pattern: Clear, Appropriate - Laboratory and Diagnostics Result Diagrams: 08/25/16 05:20 08/25/16 05:20 Labs: 08/23/16 21:00 Urine,Clean Catch Urine Culture - Final Laboratory WBC 16.9 X10^3/uL (3.6-10.0) H 08/25/16 05:20 RBC 4.23 X10^6/uL (4.7-6.0) L 08/25/16 05:20 Hgb 12.6 g/dL (13.5-18.0) L 08/25/16 05:20 Hct 37.1 % (42.0-54.0) L 08/25/16 05:20 MCV 87.9 fL (80.0-100.0) 08/25/16 05:20 MCH 29.8 pg (27.0-34.0) 08/25/16 05:20 MCHC 34.0 g/dL (33.0-35.0) 08/25/16 05:20 RDW 13.4 % (11.6-16.5) 08/25/16 05:20 Plt Count 247 X10^3/uL (150.0-450.0) 08/25/16 05:20 Plt Count Comment Adequate (ADEQUATE) 08/25/16 05:20 MPV 8.8 fL (7.4-11.0) 08/25/16 05:20 Neut % 81.3 % (42.0-75.0) H 08/25/16 05:20 Lymph % 10.7 % (21.0-51.0) L 08/25/16 05:20 [place] % 6.8 % (0.0-13.0) 08/25/16 05:20 Eos % 0.6 % (0.9-2.9) L 08/25/16 05:20 Baso % 0.6 % (0.2-1.0) 08/25/16 05:20 Neut # 13.7 x10^3/uL (2.2-4.8) H 08/25/16 05:20 Lymph # 1.8 X10^3/uL (1.3-2.9) 08/25/16 05:20 [place] # 1.1 x10^3/uL (0.3-0.8) H 08/25/16 05:20 Eos # 0.1 x10^3/uL (0.0-0.2) 08/25/16 05:20 Baso # 0.1 X10^3/uL (0.0-0.1) 08/25/16 05:20 Absolute Nucleated RBC 0.0 /100WBC 08/25/16 05:20 Total Counted 100 08/25/16 05:20 Neutrophils % (Manual) 78 % (39-76) H 08/25/16 05:20 Band Neutrophils % 4 % (0-10) 08/25/16 05:20 Lymphocytes % (Manual) 10 % (13-43) L 08/25/16 05:20 Monocytes % (Manual) 8 % (4-9) 08/25/16 05:20 Plt Morphology Comment Normal (NORMAL) 08/25/16 05:20 RBC Morphology Normal (NORMAL) 08/25/16 05:20 ESR 85 MM/HOUR (0-15) H 08/25/16 05:20 Sample Site Lbra 08/24/16 21:51 ABG pH 7.350 (7.35-7.45) 08/24/16 21:51 ABG pCO2 20.0 mmHg (35.0-45.0) L 08/24/16 21:51 ABG pO2 96.0 mmHg (80.0-100.0) 08/24/16 21:51 ABG HCO3 11.0 mmol/L (22-26) L* 08/24/16 21:51 ABG O2 Saturation 97.0 % (90-100) 08/24/16 21:51 ABG Base Excess -12.5 mmol/L (-2.0-2.0) L 08/24/16 21:51 Slick Test Na 08/24/16 21:51 A-a Gradient 29.0 mmHg 08/24/16 21:51 FiO2 21.000 08/24/16 21:51 Blood Gas Comments Zack abg well-mtf 08/24/16 21:51 Sodium 133 mmol/L (136-145) L 08/25/16 05:20 Corrected Sodium 135 mmol/L (136-145) L 08/25/16 05:20 Potassium 3.5 mmol/L (3.5-5.1) 08/25/16 05:20 Chloride 102 mmol/L (98-107) 08/25/16 05:20 Carbon Dioxide 15.7 mmol/L (21-32) L 08/25/16 05:20 BUN 7 mg/dL (7-18) 08/25/16 05:20 Creatinine 0.61 mg/dL (0.70-1.30) L 08/25/16 05:20 Est GFR (MDRD) Af Amer > 60 (>60) 08/25/16 05:20 Est GFR (MDRD) Non-Af > 60 (>60) 08/25/16 05:20 Glucose 186 mg/dL (65-99) H 08/25/16 05:20 Hemoglobin A1c 11.7 % (4.5-6.2) H 08/24/16 18:45 Lactic Acid 1.3 mmol/L (0.4-2.0) 08/24/16 18:45 Calcium 8.5 mg/dL (8.5-10.1) 08/25/16 05:20 Corrected Calcium 10.3 mg/dL (8.5-10.1) H 08/25/16 05:20 Phosphorus 3.5 mg/dL (2.6-4.7) 08/23/16 19:10 Magnesium 1.7 mg/dL (1.7-2.9) 08/23/16 19:10 Total Bilirubin 0.30 mg/dL (0.2-1.0) 08/25/16 05:20 AST 16 Units/L (15-37) 08/25/16 05:20 ALT 15 Units/L (12-78) 08/25/16 05:20 Alkaline Phosphatase 116 Units/L (46-116) 08/25/16 05:20 C-Reactive Protein 258.80 mg/L (0-3.0) H 08/25/16 05:20 Total Protein 6.3 g/dL (6.4-8.2) L 08/25/16 05:20 Albumin 1.8 g/dL (3.4-5.0) L 08/25/16 05:20 Globulin 4.5 g/dL (2.5-4.5) 08/25/16 05:20 Albumin/Globulin Ratio 0.4 Ratio (1.1-2.1) L 08/25/16 05:20 Free T4 1.09 ng/dL (0.76-1.46) 08/24/16 18:45 TSH 3rd Generation 0.507 uIU/mL (0.358-3.74) 08/24/16 18:45 Specimen Type Clean catch urine 08/23/16 20:03 Urine Color Yellow (YELLOW) 08/23/16 20:03 Urine Appearance Slightly hazy (CLEAR) 08/23/16 20:03 Urine pH 5.0 (5.0 - 8.0) 08/23/16 20:03 Ur Specific [place] 1.020 (1.000-1.030) 08/23/16 20:03 Urine Protein 3+ (NEGATIVE) 08/23/16 20:03 Urine Glucose (UA) 4+ (NEGATIVE) 08/23/16 20:03 Urine Ketones 4+ (NEGATIVE) 08/23/16 20:03 Urine Occult Blood 3+ (NEGATIVE) 08/23/16 20:03 Urine Nitrite Negative (NEGATIVE) 08/23/16 20:03 Urine Bilirubin Negative (NEGATIVE) 08/23/16 20:03 Urine Acetone Large (NEGATIVE) 08/24/16 05:20 Urine Urobilinogen Normal (NORMAL) 08/23/16 20:03 Ur Leukocyte Esterase Negative (NEGATIVE) 08/23/16 20:03 Urine RBC 0-3 /HPF (NEGATIVE) 08/23/16 20:03 Urine WBC 0-3 /HPF (NEGATIVE) 08/23/16 20:03 Ur Squamous Epith Cells Rare /HPF (NEGATIVE) 08/23/16 20:03 Urine Bacteria 1+ /HPF (NEGATIVE) 08/23/16 20:03 Granular Casts Few /LPF (NEGATIVE) 08/23/16 20:03 Ur Culture Indicated? No/not indicated 08/23/16 20:03 Acetone, Semi-Quant Small (NEGATIVE) H 08/24/16 18:45 - Plan (1) DKA (diabetic ketoacidoses) Status: Acute Qualifiers: Diabetes mellitus type: type 2 Diabetes mellitus complication detail: without coma Qualified Code(s): E13.10 - Other specified diabetes mellitus with ketoacidosis without coma Plan: CONTINUE iv insulin drip and iv hydration. bs per protocol. bp control, repeat am labs, cardiac monitoring. abg, o2, SERUM ACETONE Q AM (2) Hyponatremia Status: Acute Plan: CONTINUE IV HYDRATION, ENCOURAGE ORAL HYDRATION. CHECK BMP THIS AFTERNOON. REPEAT AM CMP (3) Cellulitis Status: Acute Qualifiers: Site of cellulitis: S Site of cellulitis of extremity: S Site of cellulitis of trunk: S Laterality: L Plan: WOUND CULTURE, IV vancomycin, consult pharmacy. REPEAT AM LABS
[2016-08-25] MEDS ORDERED: PHARMACY CONSULT - VANCOMYCIN XX SCH (19:00)
[2016-08-25] MEDS ORDERED: PHARMACY COMMENT IV SCH (19:30)
[2016-08-25] MEDS: HUMULIN R 100 UNITS in NS 100 ML IV 100 ML IV PRN (20:14)
[2016-08-25] MEDS: LEVEMIR SC SCH (20:18)
[2016-08-25] MEDS: SNACK - Diabetic Appropriate PO SCH (20:18)
[2016-08-25 20:27] LABS: CREATININE 0.61 mg/dL (0.70-1.30); VANCOMYCIN,TROUGH < 2.0 ug/mL (15-20)
[2016-08-25] MEDS ORDERED: D5W 250 ML IV 250 ML IV ONE (21:02)
[2016-08-25] MEDS ORDERED: VANCOMYCIN HCL 1 GM VIAL ONE (21:03)
[2016-08-25] MEDS: VANCOMYCIN HCL IV SCH (21:15)
[2016-08-25] MEDS: [UNRECOGNIZED DRUG - OTHER] IV SCH (21:15)
[2016-08-26] MEDS: NORCO 7.5/325 MG TAB PO PRN (00:16)
[2016-08-26] MEDS ORDERED: VANCOMYCIN HCL 1 GM VIAL ONE (06:02)
[2016-08-26] MEDS ORDERED: D5W 250 ML IV 250 ML IV ONE (06:02)
[2016-08-26] MEDS: NS + KCL 20 MEQ/L 1,000 ML IV SCH ×3 (06:12→19:06)
[2016-08-26] MEDS: [UNRECOGNIZED DRUG - OTHER] IV SCH (06:12)
[2016-08-26] MEDS: VANCOMYCIN HCL IV SCH ×2 (06:12→14:33)
[2016-08-26 06:18] LABS: SERUM ACETONE SMALL (NEGATIVE)
[2016-08-26 06:23] LABS: BASOPHILS # (AUTO) 0.1 X10^3/uL (0.0-0.1); BASOPHILS % (AUTO) 0.6 % (0.2-1.0); EOSINOPHILS # (AUTO) 0.1 x10^3/uL (0.0-0.2); EOSINOPHILS % (AUTO) 0.5 % (0.9-2.9); HEMATOCRIT 35.6 % (42.0-54.0); HEMOGLOBIN 12.2 g/dL (13.5-18.0); LYMPHOCYTES # (AUTO) 2.2 X10^3/uL (1.3-2.9); LYMPHOCYTES % (AUTO) 12.8 % (21.0-51.0); MEAN CORPUSCULAR HGB CONC 34.3 g/dL (33.0-35.0); MEAN CORPUSCULAR VOLUME 87.5 fL (80.0-100.0); MEAN PLATELET VOLUME 8.8 fL (7.4-11.0); MONOCYTES # (AUTO) 0.9 x10^3/uL (0.3-0.8); NEUTROPHILS # (AUTO) 14.2 x10^3/uL (2.2-4.8); NEUTROPHILS % (AUTO) 81.1 % (42.0-75.0); PLATELET COUNT 244 X10^3/uL (150.0-450.0); RED BLOOD COUNT 4.07 X10^6/uL (4.7-6.0); RED CELL DISTRIBUTION WIDTH 13.2 % (11.6-16.5); WHITE BLOOD COUNT 17.6 X10^3/uL (3.6-10.0)
[2016-08-26 06:57] LABS: ALANINE AMINOTRANSFERASE 26 Units/L (12-78); ALBUMIN 1.5 g/dL (3.4-5.0); ALKALINE PHOSPHATASE 122 Units/L (46-116); ASPARTATE AMINO TRANSFERASE 28 Units/L (15-37); BLOOD UREA NITROGEN 5 mg/dL (7-18); CALCIUM 8.3 mg/dL (8.5-10.1); CARBON DIOXIDE 19.1 mmol/L (21-32); CHLORIDE 102 mmol/L (98-107); COR CA(FOR HYPOALB) 10.3 mg/dL (8.5-10.1); COR NA(FOR HYPERGLY) 137 mmol/L (136-145); CREATININE 0.63 mg/dL (0.70-1.30); GLUCOSE 194 mg/dL (65-99); SODIUM 135 mmol/L (136-145); TOTAL PROTEIN 5.9 g/dL (6.4-8.2); eGFR BLACK RACES > 60 (>60); eGFR NON BLACK RACES > 60 (>60)
[2016-08-26 07:47] LABS: BAND NEUTROPHILS % 7 % (0-10)
[2016-08-26 07:48] LABS: PLATELET MORPHOLOGY COMMENT NORMAL (NORMAL)
--- NOTE | 2016-08-26 07:56 | RAD ---
Chest AP portable Indication: Leukocytosis Comparison: August 23, 2016. Findings: There is no pneumothorax or consolidation. Heart size is normal. Impression: No new acute chest process. Followup with PA and lateral chest for increased sensitivity . Reported By:
[2016-08-26] MEDS ORDERED: VANCOMYCIN HCL IV SCH (14:00)
[2016-08-26] MEDS ORDERED: NS IV SCH (14:00)
[2016-08-26] MEDS: NS IV SCH ×2 (14:33→20:14)
[2016-08-26] MEDS ORDERED: MAXIPIME 1 GM IV PREMIX 1 GM/50 ML BAG IV SCH (15:00)
[2016-08-26] MEDS: LOVENOX INJ 40 MG SYR SC SCH (15:03)
--- NOTE | 2016-08-26 15:38 | PCM.PROG ---
Progress Note - Progress Note for Day of Date: 08/26/16 - Subjective Subjective: patient complaining of left groin and thigh pain. Patient is a 36- year-old white male who was admitted late last night from the emergency room in [facility]. Patient's left thigh cellulitis noted to be much improved today plan to continue IV vancomycin and cefepime. We'll continue aggressive IV hydration and encourage oral hydration. Plan to repeat a.m. labs and continue blood sugar monitoring - Past Medical Family Social History Past Med/Fam/Surg Hx: No changes since H&P Allergies: Allergies No Known Drug Allergy Allergy (Verified 08/23/16 18:00) - Review of Systems ROS: No change since H&P - Vital Signs and I&O's Vital Signs: Temperature 99.2 F Pulse Rate [Right Brachial] 116 Respiratory Rate 24 Blood Pressure [Right Arm] 151/77 O2 Sat by Pulse Oximetry 98 Intake and Output: Intake & Output 08/24/16 08/25/16 08/26/16 08/27/16 11:59 11:59 11:59 11:59 Intake Total 1770 5685 4445 1980 Output Total 1560 2100 2450 950 Balance 210 3585 1995 1030 - Physical Exam Oriented: Normal Eyes: Normal Ear: Normal Nose: Normal Throat: Dry Respiratory: Normal Cardiovascular: Normal, Edema (bilater le +2) : Normal Auscultation: Bowel Sounds: Normal Tenderness: Normal Skin: Rash (scattered pustules to left anaid with larger 1cm abcess to groin with purulent d/c severe tenderness), Red (large area of rednes with increase warmth to left midthigh) Musculoskeletal: Leg Psychiatric: Anxiety Speech Pattern: Clear, Appropriate - Laboratory and Diagnostics Result Diagrams: 08/26/16 04:35 08/26/16 04:35 Labs: 08/23/16 21:00 Urine,Clean Catch Urine Culture - Final Laboratory WBC 17.6 X10^3/uL (3.6-10.0) H 08/26/16 04:35 RBC 4.07 X10^6/uL (4.7-6.0) L 08/26/16 04:35 Hgb 12.2 g/dL (13.5-18.0) L 08/26/16 04:35 Hct 35.6 % (42.0-54.0) L 08/26/16 04:35 MCV 87.5 fL (80.0-100.0) 08/26/16 04:35 MCH 30.0 pg (27.0-34.0) 08/26/16 04:35 MCHC 34.3 g/dL (33.0-35.0) 08/26/16 04:35 RDW 13.2 % (11.6-16.5) 08/26/16 04:35 Plt Count 244 X10^3/uL (150.0-450.0) 08/26/16 04:35 Plt Count Comment Adequate (ADEQUATE) 08/26/16 04:35 MPV 8.8 fL (7.4-11.0) 08/26/16 04:35 Neut % 81.1 % (42.0-75.0) H 08/26/16 04:35 Lymph % 12.8 % (21.0-51.0) L 08/26/16 04:35 [place] % 5.0 % (0.0-13.0) 08/26/16 04:35 Eos % 0.5 % (0.9-2.9) L 08/26/16 04:35 Baso % 0.6 % (0.2-1.0) 08/26/16 04:35 Neut # 14.2 x10^3/uL (2.2-4.8) H 08/26/16 04:35 Lymph # 2.2 X10^3/uL (1.3-2.9) 08/26/16 04:35 [place] # 0.9 x10^3/uL (0.3-0.8) H 08/26/16 04:35 Eos # 0.1 x10^3/uL (0.0-0.2) 08/26/16 04:35 Baso # 0.1 X10^3/uL (0.0-0.1) 08/26/16 04:35 Absolute Nucleated RBC 0.0 /100WBC 08/26/16 04:35 Total Counted 100 08/26/16 04:35 Neutrophils % (Manual) 74 % (39-76) 08/26/16 04:35 Band Neutrophils % 7 % (0-10) 08/26/16 04:35 Lymphocytes % (Manual) 14 % (13-43) 08/26/16 04:35 Monocytes % (Manual) 5 % (4-9) 08/26/16 04:35 Plt Morphology Comment Normal (NORMAL) 08/26/16 04:35 RBC Morphology Normal (NORMAL) 08/26/16 04:35 ESR 85 MM/HOUR (0-15) H 08/25/16 05:20 Sample Site Lbra 08/24/16 21:51 ABG pH 7.350 (7.35-7.45) 08/24/16 21:51 ABG pCO2 20.0 mmHg (35.0-45.0) L 08/24/16 21:51 ABG pO2 96.0 mmHg (80.0-100.0) 08/24/16 21:51 ABG HCO3 11.0 mmol/L (22-26) L* 08/24/16 21:51 ABG O2 Saturation 97.0 % (90-100) 08/24/16 21:51 ABG Base Excess -12.5 mmol/L (-2.0-2.0) L 08/24/16 21:51 Slick Test Na 08/24/16 21:51 A-a Gradient 29.0 mmHg 08/24/16 21:51 FiO2 21.000 08/24/16 21:51 Blood Gas Comments Zack abg well-mtf 08/24/16 21:51 Sodium 135 mmol/L (136-145) L 08/26/16 04:35 Corrected Sodium 137 mmol/L (136-145) 08/26/16 04:35 Potassium 3.1 mmol/L (3.5-5.1) L 08/26/16 04:35 Chloride 102 mmol/L (98-107) 08/26/16 04:35 Carbon Dioxide 19.1 mmol/L (21-32) L 08/26/16 04:35 BUN 5 mg/dL (7-18) L 08/26/16 04:35 Creatinine 0.63 mg/dL (0.70-1.30) L 08/26/16 04:35 Est GFR (MDRD) Af Amer > 60 (>60) 08/26/16 04:35 Est GFR (MDRD) Non-Af > 60 (>60) 08/26/16 04:35 Glucose 194 mg/dL (65-99) H 08/26/16 04:35 Hemoglobin A1c 11.7 % (4.5-6.2) H 08/24/16 18:45 Lactic Acid 1.3 mmol/L (0.4-2.0) 08/24/16 18:45 Calcium 8.3 mg/dL (8.5-10.1) L 08/26/16 04:35 Corrected Calcium 10.3 mg/dL (8.5-10.1) H 08/26/16 04:35 Phosphorus 3.5 mg/dL (2.6-4.7) 08/23/16 19:10 Magnesium 1.7 mg/dL (1.7-2.9) 08/23/16 19:10 Total Bilirubin 0.30 mg/dL (0.2-1.0) 08/26/16 04:35 AST 28 Units/L (15-37) 08/26/16 04:35 ALT 26 Units/L (12-78) 08/26/16 04:35 Alkaline Phosphatase 122 Units/L (46-116) H 08/26/16 04:35 C-Reactive Protein 258.80 mg/L (0-3.0) H 08/25/16 05:20 Total Protein 5.9 g/dL (6.4-8.2) L 08/26/16 04:35 Albumin 1.5 g/dL (3.4-5.0) L 08/26/16 04:35 Globulin 4.4 g/dL (2.5-4.5) 08/26/16 04:35 Albumin/Globulin Ratio 0.3 Ratio (1.1-2.1) L 08/26/16 04:35 Free T4 1.09 ng/dL (0.76-1.46) 08/24/16 18:45 TSH 3rd Generation 0.507 uIU/mL (0.358-3.74) 08/24/16 18:45 Specimen Type Clean catch urine 08/23/16 20:03 Urine Color Yellow (YELLOW) 08/23/16 20:03 Urine Appearance Slightly hazy (CLEAR) 08/23/16 20:03 Urine pH 5.0 (5.0 - 8.0) 08/23/16 20:03 Ur Specific [place] 1.020 (1.000-1.030) 08/23/16 20:03 Urine Protein 3+ (NEGATIVE) 08/23/16 20:03 Urine Glucose (UA) 4+ (NEGATIVE) 08/23/16 20:03 Urine Ketones 4+ (NEGATIVE) 08/23/16 20:03 Urine Occult Blood 3+ (NEGATIVE) 08/23/16 20:03 Urine Nitrite Negative (NEGATIVE) 08/23/16 20:03 Urine Bilirubin Negative (NEGATIVE) 08/23/16 20:03 Urine Acetone Large (NEGATIVE) 08/24/16 05:20 Urine Urobilinogen Normal (NORMAL) 08/23/16 20:03 Ur Leukocyte Esterase Negative (NEGATIVE) 08/23/16 20:03 Urine RBC 0-3 /HPF (NEGATIVE) 08/23/16 20:03 Urine WBC 0-3 /HPF (NEGATIVE) 08/23/16 20:03 Ur Squamous Epith Cells Rare /HPF (NEGATIVE) 08/23/16 20:03 Urine Bacteria 1+ /HPF (NEGATIVE) 08/23/16 20:03 Granular Casts Few /LPF (NEGATIVE) 08/23/16 20:03 Ur Culture Indicated? No/not indicated 08/23/16 20:03 Vancomycin Trough < 2.0 ug/mL (15-20) L 08/25/16 20:10 Acetone, Semi-Quant Small (NEGATIVE) H 08/26/16 04:35 - Plan (1) DKA (diabetic ketoacidoses) Status: Acute Qualifiers: Diabetes mellitus type: type 2 Diabetes mellitus complication detail: without coma Qualified Code(s): E13.10 - Other specified diabetes mellitus with ketoacidosis without coma Plan: CONTINUE iv insulin drip and iv hydration. bs per protocol. bp control, repeat am labs, cardiac monitoring. abg, o2, SERUM ACETONE Q AM (2) Hyponatremia Status: Acute Plan: CONTINUE IV HYDRATION, ENCOURAGE ORAL HYDRATION. REPEAT AM CMP (3) Cellulitis Status: Acute Qualifiers: Site of cellulitis: S Site of cellulitis of extremity: S Site of cellulitis of trunk: S Laterality: L Plan: WOUND CULTURE, IV vancomycin, consult pharmacy. REPEAT AM LABS
[2016-08-26] MEDS: LEVEMIR SC SCH (20:13)
[2016-08-26] MEDS: MAXIPIME IV SCH (20:14)
[2016-08-26] MEDS: SPIKE MINIBAG IV SCH (20:14)
[2016-08-26] MEDS: SNACK - Diabetic Appropriate PO SCH (20:15)
[2016-08-26] MEDS: HUMULIN R 100 UNITS in NS 100 ML IV 100 ML IV PRN (22:29)
[2016-08-27] MEDS ORDERED: NS 250 ML IV 250 ML IV ONE ×4 (01:30→23:50)
[2016-08-27] MEDS ORDERED: VANCOMYCIN HCL 1 GM VIAL ONE ×4 (01:30→23:50)
[2016-08-27] MEDS: NS IV SCH ×6 (01:44→23:59)
[2016-08-27] MEDS: VANCOMYCIN HCL IV SCH ×4 (01:44→23:59)
[2016-08-27] MEDS: NS + KCL 20 MEQ/L 1,000 ML IV SCH ×4 (01:45→15:25)
[2016-08-27 06:05] LABS: BASOPHILS # (AUTO) 0.1 X10^3/uL (0.0-0.1); BASOPHILS % (AUTO) 0.5 % (0.2-1.0); EOSINOPHILS # (AUTO) 0.1 x10^3/uL (0.0-0.2); EOSINOPHILS % (AUTO) 0.5 % (0.9-2.9); HEMATOCRIT 31.7 % (42.0-54.0); HEMOGLOBIN 10.9 g/dL (13.5-18.0); LYMPHOCYTES % (AUTO) 11.5 % (21.0-51.0); MEAN CORPUSCULAR HEMOGLOBIN 29.7 pg (27.0-34.0); MEAN CORPUSCULAR HGB CONC 34.5 g/dL (33.0-35.0); MONOCYTES # (AUTO) 0.7 x10^3/uL (0.3-0.8); MONOCYTES % (AUTO) 3.9 % (0.0-13.0); NEUTROPHILS # (AUTO) 14.5 x10^3/uL (2.2-4.8); NEUTROPHILS % (AUTO) 83.6 % (42.0-75.0); PLATELET COUNT 258 X10^3/uL (150.0-450.0); RED BLOOD COUNT 3.69 X10^6/uL (4.7-6.0); RED CELL DISTRIBUTION WIDTH 13.3 % (11.6-16.5); WHITE BLOOD COUNT 17.4 X10^3/uL (3.6-10.0)
[2016-08-27 06:07] LABS: ALANINE AMINOTRANSFERASE 30 Units/L (12-78); ALBUMIN 1.2 g/dL (3.4-5.0); ALKALINE PHOSPHATASE 116 Units/L (46-116); ASPARTATE AMINO TRANSFERASE 31 Units/L (15-37); BLOOD UREA NITROGEN 5 mg/dL (7-18); CARBON DIOXIDE 20.4 mmol/L (21-32); CHLORIDE 103 mmol/L (98-107); COR CA(FOR HYPOALB) 10.2 mg/dL (8.5-10.1); COR NA(FOR HYPERGLY) 138 mmol/L (136-145); CREATININE 0.57 mg/dL (0.70-1.30); GLUCOSE 210 mg/dL (65-99); SODIUM 135 mmol/L (136-145); TOTAL PROTEIN 5.3 g/dL (6.4-8.2); eGFR BLACK RACES > 60 (>60); eGFR NON BLACK RACES > 60 (>60)
[2016-08-27 07:36] LABS: BAND NEUTROPHILS % 10 % (0-10); METAMYELOCYTES % 2; PLATELET MORPHOLOGY COMMENT NORMAL (NORMAL)
[2016-08-27] MEDS: LOVENOX INJ 40 MG SYR SC SCH (09:47)
[2016-08-27] MEDS: SPIKE MINIBAG IV SCH ×2 (09:48→20:42)
[2016-08-27] MEDS: MAXIPIME IV SCH ×2 (09:48→20:42)
[2016-08-27 15:47] LABS: CREATININE 0.86 mg/dL (0.70-1.30); VANCOMYCIN,TROUGH 20.8 ug/mL (15-20)
--- NOTE | 2016-08-27 16:21 | CT ---
History: Left upper leg pain and swelling. Concern for abscess in pelvis and left thigh. Technique: CT of the pelvis without contrast. Multiple contiguous axial CT images of the pelvis were obtained without contrast from of the iliac crest through the ischial tuberosities. Sagittal and co buddy reformatted images were reconstructed. Comparison:NONE Findings: Please note that the lateral skin surface of the lower pelvis and proximal thigh were excluded from the field of view. There is stranding of the subcutaneous adipose tissue involving the anterior and lateral aspects of the proximal left thigh extending proximally to the level of the greater trochanter. Please note holly t the distal extent of the inflammatory changes were not fully included within the field of view. There is a tubular shaped soft tissue density within the subcutaneous adipose tissue of the left ing uinal region as demonstrated on axial image 62 through 84. Its evaluation is limited by the lack of IV contrast. This soft tissue density extends to the skin surface on image 80 where there is an irre gularity of the overlying skin possibly suggesting an open wound however correlation with physical e xam findings is required. There is left inguinal lymphadenopathy. The largest left inguinal lymph no de measures 2.0 by 1.5 cm. There is left external iliac lymphadenopathy also noted. There is a thick ened subcutaneous venous structure within the anterior thigh as demonstrated on axial images 94 thro ugh 110. The most inferior extent of this structure is not included within the examination. Its eval uation is incomplete given the lack of IV contrast however may be secondary to a thrombophlebitis. N o discrete organized fluid collections are identified although evaluation is limited by the lack of IV contrast. The included portions of the small bowel and colon are nondistended. There is no free fluid noted wi thin the pelvis. No organized fluid collections are seen within the deep pelvic structures. Urinary bladder appears unremarkable. There is moderate bilateral hip osteoarthrosis. No acute osseous abnormalities are identified. Impression: 1. Moderate fat strain noted within the anterior and lateral aspects of the proximal left thigh as d iscussed above. Please note that the distal extent of these findings was not included within the exa mination . Also note that the lateral aspect of the skin surface was not included within the field o f view. Findings are nonspecific but may be secondary to cellulitis. 2. Tubular shaped soft tissue density structure within the subcutaneous adipose tissue of the left i nguinal region as discussed above which appears to communicate with the skin surface possibly with a n overlying wound however clinical correlation is required. This is nonspecific but may be secondary to a phlegmon or developing abscess. Its evaluation is limited by the lack of IV contrast however n o organized fluid density structure is identified to suggest a definite drainable abscess. Correlati on with ultrasound is recommended to exclude abscess. 3. Thickened superficial venous structure within the anterior aspect of the proximal left thigh, in the region of the fat stranding, concerning for a superficial thrombophlebitis. Correlation with laura ous Doppler recommended to exclude proximal extent and DVT. 4. Left inguinal and left external iliac lymphadenopathy 5. Other findings as above Reported By:
--- NOTE | 2016-08-27 17:11 | CT ---
History: Left thigh pain and swelling. Technique: Multiple contiguous axial CT images of the left thigh were obtained from the left hip thr ough the femoral condyles. No IV contrast was given. Sagittal and coronal reformatted images were re constructed. Comparison: CT of the pelvis dated 08/27/2016 Findings: Please refer to the CT of the pelvis for discussion of the left inguinal region findings. There is moderate to severe subcutaneous edema involving the the contains adipose tissue of the ante rior and lateral aspect of the proximal thigh. This fat stranding extends distally where it involves the thigh in a circumferential fashion, with most severe involvement anterior and medially. There i s perifascial fat stranding noted within the hamstring compartment of the posterior thigh. No subcut aneous/soft tissue air is noted. There is a fluid collection density within the medial left thigh proximally which measures 1.4 x 1.6 cm. It is in the subcutaneous adipose tissue extending to the skin surface on series 4 images 113 . This is nonspecific. There is only a mild amount of adjacent fat stranding. This may repres ent an abscess or possibly a sebaceous cyst or other dermatologic condition. There is a thickened vascular structure noted within the anterior subcutaneous adipose tissue of the thigh extending from the left inguinal region distally where it appears tortuous and varicose. A urias perficial thrombophlebitis is not excluded. There is a small amount of joint fluid within the left k nee. No acute osseous abnormalities are demonstrated. There is again demonstration of a tubular soft tissue density structure within the subcutaneous adipose tissue of the left inguinal region which m ay represent a phlegmon or developing abscess. Please refer to the CT report from the recent pelvic CT. Left inguinal lymphadenopathy is noted. Impression: 1. Moderate to severe subcutaneous edema is noted throughout the thigh. Proximally it involves the a nterior and lateral aspects of the thigh however distally it is circumferential in distribution, mos t severely involving the anterior and medial aspect. The edema involves subcutaneous adipose tissue and superficial fascia as well as perifascial edema within the hamstring compartment. Given this fin ding, fasciitis/necrotizing fasciitis is not excluded. Please note that is a clinical diagnosis and cannot be excluded by imaging. This would be better assessed with contrast-enhanced MRI if not contr aindicated. Clinical correlation is required. If there is concern for necrotizing fasciitis, surgica l evaluation would be recommended. 2. Fluid density collection within the subcutaneous adipose tissue extend to the skin surface within the medial thigh proximally measuring up to 1.6 cm. This may represent an abscess or spaces cyst ve rsus other dermatologic condition. 3. Thickened tortuous vein within the subcutaneous adipose tissue of the thigh as discussed above. T hrombophlebitis is not excluded. Correlation with lower extremity venous Doppler recommended. 4. Other findings as above Reported By:
[2016-08-27] MEDS: LEVEMIR SC SCH (20:41)
[2016-08-27] MEDS: SNACK - Diabetic Appropriate PO SCH (20:42)
[2016-08-28] MEDS: NS + KCL 20 MEQ/L 1,000 ML IV SCH ×4 (00:50→22:50)
[2016-08-28 06:45] LABS: BLOOD UREA NITROGEN 9 mg/dL (7-18); CALCIUM 8.1 mg/dL (8.5-10.1); CARBON DIOXIDE 21.2 mmol/L (21-32); CHLORIDE 106 mmol/L (98-107); COR NA(FOR HYPERGLY) 140 mmol/L (136-145); CREATININE 1.11 mg/dL (0.70-1.30); GLUCOSE 186 mg/dL (65-99); SODIUM 138 mmol/L (136-145); eGFR BLACK RACES > 60 (>60); eGFR NON BLACK RACES > 60 (>60)
[2016-08-28 06:56] LABS: BASOPHILS # (AUTO) 0.1 X10^3/uL (0.0-0.1); BASOPHILS % (AUTO) 0.7 % (0.2-1.0); EOSINOPHILS # (AUTO) 0.1 x10^3/uL (0.0-0.2); EOSINOPHILS % (AUTO) 0.6 % (0.9-2.9); HEMATOCRIT 30.9 % (42.0-54.0); HEMOGLOBIN 10.7 g/dL (13.5-18.0); LYMPHOCYTES # (AUTO) 2.2 X10^3/uL (1.3-2.9); LYMPHOCYTES % (AUTO) 11.1 % (21.0-51.0); MEAN CORPUSCULAR HEMOGLOBIN 29.7 pg (27.0-34.0); MEAN CORPUSCULAR HGB CONC 34.6 g/dL (33.0-35.0); MEAN CORPUSCULAR VOLUME 85.9 fL (80.0-100.0); MEAN PLATELET VOLUME 8.2 fL (7.4-11.0); MONOCYTES # (AUTO) 1.4 x10^3/uL (0.3-0.8); MONOCYTES % (AUTO) 7.1 % (0.0-13.0); NEUTROPHILS # (AUTO) 15.7 x10^3/uL (2.2-4.8); NEUTROPHILS % (AUTO) 80.5 % (42.0-75.0); PLATELET COUNT 310 X10^3/uL (150.0-450.0); RED BLOOD COUNT 3.59 X10^6/uL (4.7-6.0); RED CELL DISTRIBUTION WIDTH 13.4 % (11.6-16.5); WHITE BLOOD COUNT 19.4 X10^3/uL (3.6-10.0)
[2016-08-28 07:19] LABS: SERUM ACETONE SMALL (NEGATIVE)
[2016-08-28] MEDS ORDERED: NS 250 ML IV 250 ML IV ONE ×2 (07:21→14:27)
[2016-08-28] MEDS ORDERED: VANCOMYCIN HCL 1 GM VIAL ONE ×2 (07:21→14:28)
[2016-08-28] MEDS: NS IV SCH ×4 (07:30→20:28)
[2016-08-28] MEDS: VANCOMYCIN HCL IV SCH ×2 (07:30→14:40)
[2016-08-28 08:11] LABS: PLATELET MORPHOLOGY COMMENT NORMAL (NORMAL)
[2016-08-28 08:13] LABS: BAND NEUTROPHILS % 11 % (0-10); METAMYELOCYTES % 6; MYELOCYTES % 2
[2016-08-28] MEDS: LOVENOX INJ 40 MG SYR SC SCH (09:57)
[2016-08-28] MEDS: MAXIPIME IV SCH ×2 (09:58→20:28)
[2016-08-28] MEDS: SPIKE MINIBAG IV SCH ×2 (09:58→20:28)
[2016-08-28] MEDS ORDERED: POTASSIUM CHLORIDE LIQ 20 MEQ UDC PO PRN (10:06)
[2016-08-28] MEDS ORDERED: K-RIDER 10 MEQ/NS 100 ML 10 MEQ/100 ML BAG IV PRN (10:06)
[2016-08-28] MEDS ORDERED: K-LYTE EFFERVESCENT PO PRN (10:06)
[2016-08-28] MEDS: K-DUR TAB 20 MEQ PO PRN ×2 (10:11→12:51)
[2016-08-28] MEDS: HUMULIN R 100 UNITS in NS 100 ML IV 100 ML IV PRN (13:11)
[2016-08-28] MEDS ORDERED: HUMULIN N SC ONE (16:05)
[2016-08-28] MEDS ORDERED: HUMULIN N SC SCH (17:00)
[2016-08-28] MEDS: SNACK - Diabetic Appropriate PO SCH (20:31)
[2016-08-28] MEDS: HUMULIN R SC PRN (20:35)
[2016-08-28 22:26] LABS: CREATININE 1.24 mg/dL (0.70-1.30); VANCOMYCIN,TROUGH 44.4 ug/mL (15-20)
[2016-08-28] MEDS: PHARMACY CONSULT - VANCOMYCIN XX SCH (23:10)
[2016-08-29] MEDS: HUMULIN R SC PRN ×4 (05:39→20:24)
[2016-08-29] MEDS: NS + KCL 20 MEQ/L 1,000 ML IV SCH ×4 (05:50→20:23)
[2016-08-29 06:36] LABS: ALANINE AMINOTRANSFERASE 48 Units/L (12-78); ALBUMIN 1.1 g/dL (3.4-5.0); ALKALINE PHOSPHATASE 122 Units/L (46-116); ASPARTATE AMINO TRANSFERASE 33 Units/L (15-37); BLOOD UREA NITROGEN 11 mg/dL (7-18); CALCIUM 8.2 mg/dL (8.5-10.1); CARBON DIOXIDE 19.9 mmol/L (21-32); CHLORIDE 105 mmol/L (98-107); COR CA(FOR HYPOALB) 10.5 mg/dL (8.5-10.1); COR NA(FOR HYPERGLY) 141 mmol/L (136-145); CREATININE 1.19 mg/dL (0.70-1.30); GLUCOSE 258 mg/dL (65-99); SODIUM 137 mmol/L (136-145); TOTAL PROTEIN 5.3 g/dL (6.4-8.2); eGFR BLACK RACES > 60 (>60); eGFR NON BLACK RACES > 60 (>60)
[2016-08-29 06:42] LABS: BASOPHILS # (AUTO) 0.1 X10^3/uL (0.0-0.1); BASOPHILS % (AUTO) 0.5 % (0.2-1.0); EOSINOPHILS # (AUTO) 0.1 x10^3/uL (0.0-0.2); EOSINOPHILS % (AUTO) 0.6 % (0.9-2.9); HEMOGLOBIN 10.5 g/dL (13.5-18.0); LYMPHOCYTES % (AUTO) 9.1 % (21.0-51.0); MEAN CORPUSCULAR HEMOGLOBIN 29.5 pg (27.0-34.0); MEAN CORPUSCULAR HGB CONC 33.8 g/dL (33.0-35.0); MEAN CORPUSCULAR VOLUME 87.3 fL (80.0-100.0); MONOCYTES # (AUTO) 0.9 x10^3/uL (0.3-0.8); MONOCYTES % (AUTO) 4.1 % (0.0-13.0); NEUTROPHILS # (AUTO) 19.1 x10^3/uL (2.2-4.8); NEUTROPHILS % (AUTO) 85.7 % (42.0-75.0); PLATELET COUNT 307 X10^3/uL (150.0-450.0); RED BLOOD COUNT 3.55 X10^6/uL (4.7-6.0); RED CELL DISTRIBUTION WIDTH 13.8 % (11.6-16.5)
[2016-08-29 06:50] LABS: WHITE BLOOD COUNT 22.3 X10^3/uL (3.6-10.0)
[2016-08-29 06:58] LABS: BAND NEUTROPHILS % 13 % (0-10); METAMYELOCYTES % 5; PLATELET MORPHOLOGY COMMENT NORMAL (NORMAL)
[2016-08-29] MEDS: HUMULIN N SC SCH ×2 (07:45→16:27)
[2016-08-29] MEDS: LOVENOX INJ 40 MG SYR SC SCH (08:49)
[2016-08-29] MEDS: NS IV SCH ×2 (08:49→20:23)
[2016-08-29] MEDS: SPIKE MINIBAG IV SCH ×2 (08:49→20:23)
[2016-08-29] MEDS: MAXIPIME IV SCH ×2 (08:49→20:23)
[2016-08-29 10:27] LABS: CREATININE 1.26 mg/dL (0.70-1.30)
[2016-08-29] MEDS: SNACK - Diabetic Appropriate PO SCH (20:24)
[2016-08-30] MEDS: NS + KCL 20 MEQ/L 1,000 ML IV SCH ×6 (03:00→20:54)
[2016-08-30] MEDS: HUMULIN R SC PRN ×4 (05:44→20:47)
[2016-08-30] MEDS: PHARMACY CONSULT - VANCOMYCIN XX SCH (05:55)
[2016-08-30 06:18] LABS: EOSINOPHILS # (AUTO) 0.2 x10^3/uL (0.0-0.2); HEMOGLOBIN 10.8 g/dL (13.5-18.0)
[2016-08-30 06:30] LABS: ALANINE AMINOTRANSFERASE 48 Units/L (12-78); ALBUMIN 1.1 g/dL (3.4-5.0); ALKALINE PHOSPHATASE 131 Units/L (46-116); ASPARTATE AMINO TRANSFERASE 38 Units/L (15-37); BLOOD UREA NITROGEN 11 mg/dL (7-18); CALCIUM 8.3 mg/dL (8.5-10.1); CHLORIDE 105 mmol/L (98-107); COR CA(FOR HYPOALB) 10.6 mg/dL (8.5-10.1); COR NA(FOR HYPERGLY) 141 mmol/L (136-145); CREATININE 1.15 mg/dL (0.70-1.30); GLUCOSE 224 mg/dL (65-99); SODIUM 138 mmol/L (136-145); TOTAL PROTEIN 5.7 g/dL (6.4-8.2); eGFR BLACK RACES > 60 (>60); eGFR NON BLACK RACES > 60 (>60)
[2016-08-30 06:33] LABS: BASOPHILS # (AUTO) 0.1 X10^3/uL (0.0-0.1); BASOPHILS % (AUTO) 0.6 % (0.2-1.0); HEMATOCRIT 32.5 % (42.0-54.0); LYMPHOCYTES # (AUTO) 2.2 X10^3/uL (1.3-2.9); LYMPHOCYTES % (AUTO) 9.4 % (21.0-51.0); MEAN CORPUSCULAR HEMOGLOBIN 29.2 pg (27.0-34.0); MEAN CORPUSCULAR HGB CONC 33.3 g/dL (33.0-35.0); MEAN CORPUSCULAR VOLUME 87.9 fL (80.0-100.0); MEAN PLATELET VOLUME 8.1 fL (7.4-11.0); MONOCYTES # (AUTO) 1.1 x10^3/uL (0.3-0.8); MONOCYTES % (AUTO) 4.6 % (0.0-13.0); NEUTROPHILS # (AUTO) 20.2 x10^3/uL (2.2-4.8); NEUTROPHILS % (AUTO) 84.4 % (42.0-75.0); PLATELET COUNT 338 X10^3/uL (150.0-450.0); RED CELL DISTRIBUTION WIDTH 14.1 % (11.6-16.5)
[2016-08-30 06:36] LABS: WHITE BLOOD COUNT 23.9 X10^3/uL (3.6-10.0)
[2016-08-30 07:20] LABS: BAND NEUTROPHILS % 21 % (0-10)
[2016-08-30 07:22] LABS: METAMYELOCYTES % 4; PLATELET MORPHOLOGY COMMENT NORMAL (NORMAL)
[2016-08-30] MEDS: HUMULIN N SC SCH ×2 (07:24→18:08)
[2016-08-30] MEDS: LOVENOX INJ 40 MG SYR SC SCH (08:04)
[2016-08-30] MEDS: MAXIPIME IV SCH ×2 (08:04→20:41)
[2016-08-30] MEDS: SPIKE MINIBAG IV SCH ×2 (08:04→20:41)
[2016-08-30] MEDS: NS IV SCH ×2 (08:04→20:41)
[2016-08-30] MEDS: VANCOMYCIN 1 GM PREMIX (ADDVANTAGE) 250 ML IV SCH ×2 (08:55→20:46)
[2016-08-30] MEDS: SNACK - Diabetic Appropriate PO SCH (20:54)
[2016-08-31] MEDS: NS + KCL 20 MEQ/L 1,000 ML IV SCH ×2 (02:48→08:40)
[2016-08-31] MEDS: HUMULIN R SC PRN ×2 (05:32→11:31)
[2016-08-31 06:17] LABS: BASOPHILS # (AUTO) 0.1 X10^3/uL (0.0-0.1); BASOPHILS % (AUTO) 0.6 % (0.2-1.0); EOSINOPHILS # (AUTO) 0.2 x10^3/uL (0.0-0.2); HEMATOCRIT 31.9 % (42.0-54.0); HEMOGLOBIN 10.6 g/dL (13.5-18.0); LYMPHOCYTES # (AUTO) 2.4 X10^3/uL (1.3-2.9); LYMPHOCYTES % (AUTO) 11.2 % (21.0-51.0); MEAN CORPUSCULAR HEMOGLOBIN 29.1 pg (27.0-34.0); MEAN CORPUSCULAR HGB CONC 33.3 g/dL (33.0-35.0); MEAN CORPUSCULAR VOLUME 87.4 fL (80.0-100.0); MEAN PLATELET VOLUME 7.6 fL (7.4-11.0); MONOCYTES # (AUTO) 0.9 x10^3/uL (0.3-0.8); MONOCYTES % (AUTO) 4.3 % (0.0-13.0); NEUTROPHILS # (AUTO) 17.3 x10^3/uL (2.2-4.8); NEUTROPHILS % (AUTO) 82.9 % (42.0-75.0); PLATELET COUNT 340 X10^3/uL (150.0-450.0); RED BLOOD COUNT 3.66 X10^6/uL (4.7-6.0); RED CELL DISTRIBUTION WIDTH 13.7 % (11.6-16.5)
[2016-08-31 06:21] LABS: ALANINE AMINOTRANSFERASE 42 Units/L (12-78); ALBUMIN 1.2 g/dL (3.4-5.0); ALKALINE PHOSPHATASE 124 Units/L (46-116); ASPARTATE AMINO TRANSFERASE 29 Units/L (15-37); BLOOD UREA NITROGEN 10 mg/dL (7-18); CALCIUM 8.2 mg/dL (8.5-10.1); CARBON DIOXIDE 23.9 mmol/L (21-32); CHLORIDE 105 mmol/L (98-107); COR CA(FOR HYPOALB) 10.4 mg/dL (8.5-10.1); COR NA(FOR HYPERGLY) 140 mmol/L (136-145); CREATININE 1.14 mg/dL (0.70-1.30); GLUCOSE 213 mg/dL (65-99); SODIUM 137 mmol/L (136-145); TOTAL PROTEIN 5.8 g/dL (6.4-8.2); eGFR BLACK RACES > 60 (>60); eGFR NON BLACK RACES > 60 (>60)
[2016-08-31 06:28] LABS: WHITE BLOOD COUNT 20.9 X10^3/uL (3.6-10.0)
[2016-08-31] MEDS: PHARMACY CONSULT - VANCOMYCIN XX SCH (06:37)
[2016-08-31 06:56] LABS: BAND NEUTROPHILS % 7 % (0-10); PLATELET MORPHOLOGY COMMENT NORMAL (NORMAL)
[2016-08-31] MEDS: MAXIPIME IV SCH (08:35)
[2016-08-31] MEDS: HUMULIN N SC SCH (08:35)
[2016-08-31] MEDS: SPIKE MINIBAG IV SCH (08:35)
[2016-08-31] MEDS: NS IV SCH (08:35)
[2016-08-31] MEDS: LOVENOX INJ 40 MG SYR SC SCH (08:38)
[2016-08-31] MEDS: VANCOMYCIN 1 GM PREMIX (ADDVANTAGE) 250 ML IV SCH (09:07)
[2016-08-31 11:02] VITALS: BP 121/96
== END 2016-08-31 12:50 | disposition home or self-care (01) | DRG 637 ==
LOC: ER 18:09 → ICU 20:30
PROVIDERS: ADMIT Internal Medicine; ATTEND Internal Medicine
DX: E13.10 Other specified diabetes mellitus with ketoacidosis without coma (principal); K65.0 Generalized (acute) peritonitis; L03.116 Cellulitis of left lower limb; E87.1 Hypo-osmolality and hyponatremia; M79.89 Other specified soft tissue disorders; B95.7 Other staphylococcus as the cause of diseases classified elsewhere; D72.828 Other elevated white blood cell count; R11.2 Nausea with vomiting, unspecified; R53.83 Other fatigue; R06.02 Shortness of breath; E78.2 Mixed hyperlipidemia; I10 Essential (primary) hypertension
CPT/HCPCS: 36415; 36600; 71010; 71020; 72192; 73700; 80048; 80053; 80202; 81001; 82009; 82565; 82803; 83036; 83605; 83735; 84100; 84132; 84439; 84443; 85025; 85652; 86140; 87040; 87070; 87075; 87077; 87086; 87186; 87205; 93005; 93971; 96365; 96367; 96374; 96375; 99231; 99284; 99285; A4222; 1956; J0692; J1650; J1815; J1956; J2270; J3370; J3490

== ENCOUNTER 2016-09-07 11:45 | Inpatient (IN) | payer SELFPAY ==
[2016-09-07 11:59] VITALS: BMI 36.5
--- NOTE | 2016-09-07 12:19 | DR.GENAD ---
HPI - PCP Primary Care Physician: ADRIEL - HPI Comment HPI Comment: PATIENT RECENTLY DEVELOP CELLULITIS LLE AND TREATED WITH IV ANTIBIOTICS AND DISCHARGE HOME WITH AUGMENTIN AND BACTRIN. HE CONTINUE TO TO FEEL SICK AND WEAK. HE DID HAVE FEVER AT HOME. HIS SUGAR HAS BEING RUNNING HIGH. - Complaint/Symptoms Chief Complaint Doctors Comments: REDNESS AND SWELLING LLE TIMES SEVERAL DAYS. Chief Complaint:: "LEFT LEG SWELLING", "THICK URINE" - Nurses notes reviewed Nurses Notes Review: Yes - Source History Provided: Patient, Family Member - Mode of Arrival Mode of Arrival: EMS - Timing Onset of Chief Complaint: 09/07/16 Came on: Gradually - Duration Duration: Constant Duration: Days - Severity Severity: Moderate PMH - PMH Past Medical History: Yes Past Medical History: Diabetes, Dyslipidemia, Hypertension Past Surgical History: No Surgical History: No History - Family History History of Family Medical Conditions: Yes Family Medical History: Diabetes Mellitus, Hypertension - Social History Does patient currently use any type of tobacco product: Yes Have you used tobacco products in the last 12 months: Yes Type of Tobacco Use: Cigarettes Does any household member use tobacco: Yes Alcohol Use: None Do you use any recreational Drugs:: No Lives With: Family Lives Where: Home - infectious screening In the last 2 months have you had wt loss of >10#?: NO Have you had fever, night sweats or hemotysis?: No Have you traveled outside the country in the last 6 months?: No Isolation: Standard ROS - Review of Systems Constitutional: Weakness, Fatigue. negative: See HPI, Fever Eyes: Blurred Vision. negative: Eye Pain, Discharge ENTM: Nose Congestion. negative: Ear Pain, Nose Discharge, Throat Pain Respiratoy: Non-Productive Cough. negative: Short of Breath, Wheezing, Hemoptysis Cardiovascular: Edema (LLE). negative: Chest Pain Gastrointestinal/Abdominal: Nausea, Vomiting Genitourinary: negative: Dysuria, Frequency, Hematuria Neurological: Headache, Weakness Musculoskeletal: Muscle Pain Integumentary: Rash (LLE CELLULITIS) Hematologic/Lymphatic: Easy Bruising Endocrine: Increased Thirst, Increased Urine. negative: Excessive Sweating PE - Vital Signs Vitals: Temperature 97.6 F Pulse Rate 120 Respiratory Rate 20 Blood Pressure [Right Arm] 121/96 Blood Pressure [Left Arm] 158/87 Blood Pressure 143/87 O2 Sat by Pulse Oximetry 95 - General Limitations: No Limitations General Appearance: Alert - Head Head Exam: Normal Inspection - Eyes Eye exam: Normal Appearance - ENT ENT Exam: Normal External Ear Exam External Ear Exam: Normal External Inspection TM/Canal Exam: Bilateral Normal Nose Exam: Normal Nose Exam Mouth Exam: Normal Inspection Throat Exam: Normal Inspection - Neck Neck Exam: Trachea Midline. negative: Tenderness, Meningismus, Lymphadenopathy - Chest Chest Inspection: Symmetric Chest Wall Rise - Respiratory Respiratory Exam: negative: Chest Wall Tenderness, Respiratory Distress Respiratory Exam: Bilateral Rhonchi, Lower Rhonchi - Cardiovascular Cardiovascular Exam: Normal Rhythm, Tachycardia, Normal Heart Sounds - Abdominal Exam Abdominal Exam: Normal Bowel Sounds, Soft. negative: Tenderness - Extremities Extremities Exam: Tenderness (SWELLING, ERYTHEMA AND TENDERNESS LLE.) - Back Back Exam: Normal Inspection - Neurologic Neurological Exam: Alert, Oriented X3, CN II-XII Intact, Reflexes Normal. negative: Motor Sensory Deficit - Psychiatric Psychiatric Exam: Anxious - Skin Skin Exam: Dry, Erythema MDM - Additional Information Additional Information Obtained From: Family - Differential Diagnosis Differential Diagnosis: CELLULITIS LLE, DKA, DEHYDRATION, DVT, PULMONARY EMBILISM. Course - Treatment Treatment: SEE ORDERS - Consultation Consultation Comments: SIACUSS PATIENT WITH DR. MOREL. HE WILL ADMIT PATIENT. - Education/Counseling Education/Counseling: Patient, Family, Education Educated On: Treatment, Diagnosis ROR - Labs Reviewed Laboratory Results Reviewed?: Yes Result Diagrams: 09/07/16 12:25 09/07/16 12:25 Laboratory: WBC 16.6 X10^3/uL (3.6-10.0) H 09/07/16 12:25 RBC 3.88 X10^6/uL (4.7-6.0) L 09/07/16 12:25 Hgb 11.5 g/dL (13.5-18.0) L 09/07/16 12:25 Hct 33.5 % (42.0-54.0) L 09/07/16 12:25 MCV 86.5 fL (80.0-100.0) 09/07/16 12:25 MCH 29.8 pg (27.0-34.0) 09/07/16 12:25 MCHC 34.4 g/dL (33.0-35.0) 09/07/16 12:25 RDW 13.2 % (11.6-16.5) 09/07/16 12:25 Plt Count 487 X10^3/uL (150.0-450.0) H 09/07/16 12:25 MPV 7.2 fL (7.4-11.0) L 09/07/16 12:25 Neut % 79.3 % (42.0-75.0) H 09/07/16 12:25 Lymph % 13.9 % (21.0-51.0) L 09/07/16 12:25 [place] % 5.2 % (0.0-13.0) 09/07/16 12:25 Eos % 0.7 % (0.9-2.9) L 09/07/16 12:25 Baso % 0.9 % (0.2-1.0) 09/07/16 12:25 Neut # 13.2 x10^3/uL (2.2-4.8) H 09/07/16 12:25 Lymph # 2.3 X10^3/uL (1.3-2.9) 09/07/16 12:25 [place] # 0.9 x10^3/uL (0.3-0.8) H 09/07/16 12:25 Eos # 0.1 x10^3/uL (0.0-0.2) 09/07/16 12:25 Baso # 0.2 X10^3/uL (0.0-0.1) H 09/07/16 12:25 Absolute Nucleated RBC 0.1 /100WBC 09/07/16 12:25 D-Dimer 4310 ng/mL (0-400) H* 09/07/16 12:25 Sodium 133 mmol/L (136-145) L 09/07/16 12:25 Corrected Sodium 136 mmol/L (136-145) 09/07/16 12:25 Potassium 3.6 mmol/L (3.5-5.1) 09/07/16 12:25 Chloride 94 mmol/L (98-107) L 09/07/16 12:25 Carbon Dioxide 29.7 mmol/L (21-32) 09/07/16 12:25 BUN 15 mg/dL (7-18) 09/07/16 12:25 Creatinine 1.18 mg/dL (0.70-1.30) 09/07/16 12:25 Est GFR (MDRD) Af Amer > 60 (>60) 09/07/16 12:25 Est GFR (MDRD) Non-Af > 60 (>60) 09/07/16 12:25 Glucose 208 mg/dL (65-99) H 09/07/16 12:25 Lactic Acid 1.2 mmol/L (0.4-2.0) 09/07/16 12:25 Calcium 8.4 mg/dL (8.5-10.1) L 09/07/16 12:25 Corrected Calcium 9.8 mg/dL (8.5-10.1) 09/07/16 12:25 Total Bilirubin 0.60 mg/dL (0.2-1.0) 09/07/16 12:25 AST 93 Units/L (15-37) H 09/07/16 12:25 ALT 206 Units/L (12-78) H 09/07/16 12:25 Alkaline Phosphatase 116 Units/L (46-116) 09/07/16 12:25 Total Protein 7.1 g/dL (6.4-8.2) 09/07/16 12:25 Albumin 2.2 g/dL (3.4-5.0) L 09/07/16 12:25 Globulin 4.9 g/dL (2.5-4.5) H 09/07/16 12:25 Albumin/Globulin Ratio 0.4 Ratio (1.1-2.1) L 09/07/16 12:25 Specimen Type Clean catch urine 09/07/16 13:24 Urine Color Dark yellow (YELLOW) 09/07/16 13:24 Urine Appearance Slightly hazy (CLEAR) 09/07/16 13:24 Urine pH 6.0 (5.0 - 8.0) 09/07/16 13:24 Ur Specific [place] 1.015 (1.000-1.030) 09/07/16 13:24 Urine Protein 2+ (NEGATIVE) 09/07/16 13:24 Urine Glucose (UA) 1+ (NEGATIVE) 09/07/16 13:24 Urine Ketones 2+ (NEGATIVE) 09/07/16 13:24 Urine Occult Blood 1+ (NEGATIVE) 09/07/16 13:24 Urine Nitrite Negative (NEGATIVE) 09/07/16 13:24 Urine Bilirubin 1+ (NEGATIVE) 09/07/16 13:24 Urine Urobilinogen 2+ (NORMAL) 09/07/16 13:24 Ur Leukocyte Esterase 3+ (NEGATIVE) 09/07/16 13:24 Urine RBC 0-3 /HPF (NEGATIVE) 09/07/16 13:24 Urine WBC 10-15 /HPF (NEGATIVE) 09/07/16 13:24 Ur Squamous Epith Cells Few /HPF (NEGATIVE) 09/07/16 13:24 Urine Bacteria Trace /HPF (NEGATIVE) 09/07/16 13:24 Urine Mucus Few /HPF (NEGATIVE) 09/07/16 13:24 Ur Culture Indicated? Yes/culture set up 09/07/16 13:24 Acetone, Semi-Quant Negative (NEGATIVE) 09/07/16 12:25 - Diagnosis Discharge Problem: Cellulitis of left lower extremity, Hyperglycemia, Dehydration UTI (urinary tract infection) Qualifiers: Urinary tract infection type: urethritis Qualified Code(s): N34.2 - Other urethritis - Discharge Plan Disposition: ADMITTED INPATIENT Condition: Stable - Follow ups/Referrals - Instructions
[2016-09-07 12:37] LABS: BASOPHILS # (AUTO) 0.2 X10^3/uL (0.0-0.1); BASOPHILS % (AUTO) 0.9 % (0.2-1.0); EOSINOPHILS # (AUTO) 0.1 x10^3/uL (0.0-0.2); EOSINOPHILS % (AUTO) 0.7 % (0.9-2.9); HEMATOCRIT 33.5 % (42.0-54.0); HEMOGLOBIN 11.5 g/dL (13.5-18.0); LYMPHOCYTES # (AUTO) 2.3 X10^3/uL (1.3-2.9); LYMPHOCYTES % (AUTO) 13.9 % (21.0-51.0); MEAN CORPUSCULAR HEMOGLOBIN 29.8 pg (27.0-34.0); MEAN CORPUSCULAR HGB CONC 34.4 g/dL (33.0-35.0); MEAN CORPUSCULAR VOLUME 86.5 fL (80.0-100.0); MEAN PLATELET VOLUME 7.2 fL (7.4-11.0); MONOCYTES # (AUTO) 0.9 x10^3/uL (0.3-0.8); MONOCYTES % (AUTO) 5.2 % (0.0-13.0); NEUTROPHILS # (AUTO) 13.2 x10^3/uL (2.2-4.8); NEUTROPHILS % (AUTO) 79.3 % (42.0-75.0); PLATELET COUNT 487 X10^3/uL (150.0-450.0); RED BLOOD COUNT 3.88 X10^6/uL (4.7-6.0); RED CELL DISTRIBUTION WIDTH 13.2 % (11.6-16.5); WHITE BLOOD COUNT 16.6 X10^3/uL (3.6-10.0)
[2016-09-07 12:47] LABS: ALANINE AMINOTRANSFERASE 206 Units/L (12-78); ALBUMIN 2.2 g/dL (3.4-5.0); ALKALINE PHOSPHATASE 116 Units/L (46-116); ASPARTATE AMINO TRANSFERASE 93 Units/L (15-37); BLOOD UREA NITROGEN 15 mg/dL (7-18); CALCIUM 8.4 mg/dL (8.5-10.1); CARBON DIOXIDE 29.7 mmol/L (21-32); CHLORIDE 94 mmol/L (98-107); COR CA(FOR HYPOALB) 9.8 mg/dL (8.5-10.1); COR NA(FOR HYPERGLY) 136 mmol/L (136-145); CREATININE 1.18 mg/dL (0.70-1.30); GLUCOSE 208 mg/dL (65-99); SERUM ACETONE NEGATIVE (NEGATIVE); SODIUM 133 mmol/L (136-145); TOTAL PROTEIN 7.1 g/dL (6.4-8.2); eGFR BLACK RACES > 60 (>60); eGFR NON BLACK RACES > 60 (>60)
[2016-09-07 12:53] LABS: LACTIC ACID 1.2 mmol/L (0.4-2.0)
[2016-09-07 13:01] LABS: D DIMER 4310 ng/mL (0-400)
[2016-09-07 13:39] LABS: BILIRUBIN,URINE 1+ (NEGATIVE); BLOOD/HEMOGLOBIN,URINE 1+ (NEGATIVE); GLUCOSE, URINE 1+ (NEGATIVE); KETONES,URINE 2+ (NEGATIVE); LEUKOCYTE ESTERASE ,URINE 3+ (NEGATIVE); NITRITES,URINE NEGATIVE (NEGATIVE); PROTEIN,URINE 2+ (NEGATIVE); UROBILINOGEN,URINE 2+ (NORMAL)
[2016-09-07 13:52] LABS: APPEARANCE,URINE SLIGHTLY HAZY (CLEAR); BACTERIA,URINE TRACE /HPF (NEGATIVE); COLOR,URINE DARK YELLOW (YELLOW); MUCUS,URINE FEW /HPF (NEGATIVE); RBC,URINE 0-3 /HPF (NEGATIVE); SQUAMOUS EPITHELIAL CELL,UR FEW /HPF (NEGATIVE)
[2016-09-07] MEDS ORDERED: PHENERGAN TAB 25 MG PO PRN (15:40)
[2016-09-07] MEDS ORDERED: NS 1000 ML 1,000 ML IV ONE (15:43)
[2016-09-07] MEDS ORDERED: PHARMACY CONSULT - VANCOMYCIN XX SCH (16:00)
[2016-09-07] MEDS: LEVAQUIN TAB 750 MG PO SCH (18:08)
[2016-09-07] MEDS: VANCOMYCIN 1 GM PREMIX (ADDVANTAGE) 250 ML IV SCH ×2 (19:10→20:23)
[2016-09-07] MEDS ORDERED: NS 250 ML IV 250 ML IV ONE (20:16)
[2016-09-08] MEDS: PHENERGAN INJ 25 MG IV PRN ×2 (03:28→11:25)
[2016-09-08 05:34] LABS: ALANINE AMINOTRANSFERASE 248 Units/L (12-78); ALBUMIN 2.4 g/dL (3.4-5.0); ALKALINE PHOSPHATASE 117 Units/L (46-116); ASPARTATE AMINO TRANSFERASE 106 Units/L (15-37); BLOOD UREA NITROGEN 17 mg/dL (7-18); CALCIUM 8.7 mg/dL (8.5-10.1); CARBON DIOXIDE 30.7 mmol/L (21-32); CHLORIDE 96 mmol/L (98-107); COR NA(FOR HYPERGLY) 139 mmol/L (136-145); CREATININE 1.13 mg/dL (0.70-1.30); GLUCOSE 195 mg/dL (65-99); SODIUM 137 mmol/L (136-145); TOTAL PROTEIN 7.4 g/dL (6.4-8.2); eGFR BLACK RACES > 60 (>60); eGFR NON BLACK RACES > 60 (>60)
[2016-09-08 05:35] LABS: BASOPHILS # (AUTO) 0.1 X10^3/uL (0.0-0.1); BASOPHILS % (AUTO) 0.9 % (0.2-1.0); EOSINOPHILS # (AUTO) 0.1 x10^3/uL (0.0-0.2); EOSINOPHILS % (AUTO) 0.7 % (0.9-2.9); HEMATOCRIT 35.1 % (42.0-54.0); HEMOGLOBIN 11.6 g/dL (13.5-18.0); MEAN CORPUSCULAR HEMOGLOBIN 28.8 pg (27.0-34.0); MEAN CORPUSCULAR HGB CONC 32.9 g/dL (33.0-35.0); MEAN CORPUSCULAR VOLUME 87.7 fL (80.0-100.0); MONOCYTES # (AUTO) 0.7 x10^3/uL (0.3-0.8); NEUTROPHILS # (AUTO) 11.4 x10^3/uL (2.2-4.8); NEUTROPHILS % (AUTO) 79.4 % (42.0-75.0); PLATELET COUNT 436 X10^3/uL (150.0-450.0); RED BLOOD COUNT 4.01 X10^6/uL (4.7-6.0); RED CELL DISTRIBUTION WIDTH 13.2 % (11.6-16.5); WHITE BLOOD COUNT 14.3 X10^3/uL (3.6-10.0)
[2016-09-08] MEDS: LEVAQUIN TAB 750 MG PO SCH (08:07)
[2016-09-08] MEDS: VANCOMYCIN 1 GM PREMIX (ADDVANTAGE) 250 ML IV SCH (08:08)
--- NOTE | 2016-09-08 08:49 | MRI ---
MR left femur with and without contrast MR left calf within without contrast Indication: Leg swelling and redness. Technique: Multiplanar multi sequence imaging through the left thigh, knee and calf was performed be fore and after IV contrast per protocol. Comparison: CT left leg from August 27, 2016. Ultrasound from August 24, 2016. Findings: Since the prior CT, there has been interval development of large peripherally enhancing fluid collec tion in the subcutaneous tissues abutting the deep fascia of the posterior compartment of the calf, posterior knee joint capsule and posterior compartment of the thigh. This extends from the mid thigh caudally to the mid calf, and shows a few septations and heterogeneous signal within the lumen. The re is subtle increased T1 signal suggesting hemorrhage. The included right leg is relatively normal. This collection measures at least 45 cm in length, see coronal image 9 of series [address] [facility] and coronal image 16 of series 501 on the calf study. The collection measures 9.2 x 5.5 cm on ax ial image 61 in the thigh. And 8.9 x 5.6 cm on axial image 25 of series 901 in the calf (AP, trans). Thigh: Neurovascular structures appear relatively normal. The fluid wraps around the sartorius muscl e and around the pes anserine tendons of the level of the knee, and is mostly confined to the subcut aneous soft tissues where there is intense edema. There is mild edema within the muscle belly of the vastus medialis and in the vastus lateralis see axial image 53 of series 901. The cranial aspect of the collection extends medially , adjacent to the sartorius muscle belly which shows edema and the vastus medialis muscle belly which shows edema . The collection passes anterior to the superficial f emoral artery and vein , and terminates in the proximal right thigh/inguinal region on axial image 2 7 of series 901 Bone marrow signal is normal in the femur. Mild gluteal muscle atrophy incidentally noted. Knee: The knee joint is relatively intact with intraosseous ganglion at the intercondylar eminence. The cruciate ligaments, collateral ligaments and menisci appear relatively normal. Mild cartilage lo ss over the median patellar ridge suspected. Calf: Mild edema in the medial gastrocnemius and soleus muscle noted. There is fluid adjacent to the Achilles tendon which appears grossly intact were visualized. After contrast, there is peripheral e nhancement of the collection, and mild enhancement along the posterior calf fascia. Subcutaneous sen ma noted. Impression: 1. Complex fluid collection extending from the proximal right thigh anteriorly near the inguinal re gion, and tracking posterior medially into the mid calf, measuring at least 45 cm in length. This is compatible with a large abscess, particularly given history. 2. There is adjacent cellulitis and edema within the sartorius muscle belly, vastus medialis muscle belly and medial gastrocnemius/soleus muscle bellies. There is mild enhancement along the superficia l fascia in the thigh anterior compartment and posterior compartment in the calf superficial fascia. 3. Given the muscle belly edema and vaginal enhancement, myositis/fasciitis may be developing. Devel oping necrotizing fasciitis is not completely excluded in the correct clinical setting. 4. Mild knee joint degenerative change without large intra-articular effusion or extension the infec tion. No osseous abnormality seen otherwise. THE AVAILABILITY OF THE REPORT AND FINDINGS WERE COMMUNICATED TO Dr. Bullard by Dr. Glynn on September 08, 2016 at 8:47 a.m. Reported By:
--- NOTE | 2016-09-08 10:04 | DR.H&P ---
H&P - History & Physical for Day of: H&P Date: 09/07/16 - Chief Complaint Chief Complaint: Left leg pain - Allergies Allergies/Adverse Reactions: Allergies Allergy/AdvReac Type Severity Reaction Status Date / Time No Known Drug Allergy Allergy Verified 08/23/16 18:00 - History of Present Illness History of Present Illness: The patient is a 36 year old white male with history of type 1 diabetes mellitus who was hospitalized at [facility] approximately 2 weeks ago due to extensive cellulitis involving the medial aspect of the left thigh as well as a subcutaneous abscess involving the left suprapubic region. At the time of the previous admission the patient was new to my service and presented in DKA despite being treated with oral medications by a previous physician. At that time the patient was treated in the ICU on an insulin drip and with IV antibiotics including IV Levaquin and IV vancomycin. The patient's DKA resolved. The patient's medial left thigh cellulitis and left suprapubic abscess markedly improved and the patient was discharged home on oral antibiotics. The patient subsequently presented to the emergency room today complaining of left thigh pain. The patient is being readmitted and being started back on IV Levaquin and vancomycin with a repeat CT scan to be ordered of the left lower extremity. - Past Medical History Past Medical History: Diabetes, Dyslipidemia, Hypertension - Past Surgical History Surgical History: No History - Family History Family Medical History: Diabetes Mellitus, Hypertension - Social History Does patient currently use any type of tobacco product: Yes Have you used tobacco products in the last 12 months: Yes Type of Tobacco Use: Cigarettes How many years tobacco product used: 13 Does any household member use tobacco: Yes Alcohol Use: None Drug Use: None - Review of Systems Constitutional: No Symptoms Reported Eyes: No Symptoms Reported ENT: No Symptoms Reported Respiratory: No Symptoms Reported Cardiovascular: No Symptoms Reported Gastrointestinal: No Symptoms Reported Genitourinary: No Symptoms Reported Musculoskeletal: See HPI Skin: See HPI Neurological: No Symptoms Reported - Physical Exam Vital Signs: Temperature 98 F Pulse Rate [Left Brachial] 118 Respiratory Rate 20 Blood Pressure [Left Arm] 133/83 O2 Sat by Pulse Oximetry 92 Oriented: Normal Eyes: Normal Ear: Normal Nose: Normal Throat: Normal Respiratory: Clear Throughout Cardiovascular: Normal : Normal Auscultation: Bowel Sounds: Normal Palpation: Normal Tenderness: Normal Musculoskeletal: Left, Thigh (mildly erythematous, medial aspect) Psychiatric: Normal Mood Description: Calm Affect: Normal Speech Pattern: Clear - Assessment/Plan (1) Cellulitis of left lower extremity Narrative Support Text: Failed outpt tx Status: Acute Plan: 1. Admit due to outpt tx failure. 2. Levaquin 500mg IV q day. 3. Vanco 1gm IV q 12 hours. 4. CMP, CBC. 5. Blood cultures X 2 from separate sites. 6. MRI of LLE in am as soon as available. 7. SSRI coverage for BS > 200. 8. Repeat CMP and CBC in am (2) Diabetes mellitus type I Qualifiers: Diabetes mellitus complication status: with skin complications Diabetes mellitus complication detail: with other skin complication Diabetic retinopathy severity: D Proliferative retinopathy type: P Diabetes mellitus macular edema: D Laterality: L Chronic kidney disease stage: C Qualified Code(s): E10.628 - Type 1 diabetes mellitus with other skin complications Status: Acute Plan: As above
--- NOTE | 2016-09-08 10:31 | PCM.DCPLAN ---
Discharge Summary - Admission Date Date of Admission: 09/07/16 - Discharge Date Discharge Date: 09/08/16 - Admission Diagnoses (1) Cellulitis of left lower extremity Status: Acute (2) Diabetes mellitus type I Status: Acute - Discharge Diagnoses Discharge Diagnosis: 1. Large abscess formation involving the left thigh; rule out necrotizing fasciitis 2. Diabetes mellitus; type I - Hospital Course Vital Signs: Temperature 98 F Pulse Rate [Left Brachial] 118 Respiratory Rate 20 Blood Pressure [Left Arm] 133/83 O2 Sat by Pulse Oximetry 92 Latest Lab Results: Laboratory Last Values WBC 14.3 X10^3/uL (3.6-10.0) H 09/08/16 04:05 RBC 4.01 X10^6/uL (4.7-6.0) L 09/08/16 04:05 Hgb 11.6 g/dL (13.5-18.0) L 09/08/16 04:05 Hct 35.1 % (42.0-54.0) L 09/08/16 04:05 MCV 87.7 fL (80.0-100.0) 09/08/16 04:05 MCH 28.8 pg (27.0-34.0) 09/08/16 04:05 MCHC 32.9 g/dL (33.0-35.0) L 09/08/16 04:05 RDW 13.2 % (11.6-16.5) 09/08/16 04:05 Plt Count 436 X10^3/uL (150.0-450.0) 09/08/16 04:05 MPV 8.0 fL (7.4-11.0) 09/08/16 04:05 Neut % 79.4 % (42.0-75.0) H 09/08/16 04:05 Lymph % 14.0 % (21.0-51.0) L 09/08/16 04:05 [place] % 5.0 % (0.0-13.0) 09/08/16 04:05 Eos % 0.7 % (0.9-2.9) L 09/08/16 04:05 Baso % 0.9 % (0.2-1.0) 09/08/16 04:05 Neut # 11.4 x10^3/uL (2.2-4.8) H 09/08/16 04:05 Lymph # 2.0 X10^3/uL (1.3-2.9) 09/08/16 04:05 [place] # 0.7 x10^3/uL (0.3-0.8) 09/08/16 04:05 Eos # 0.1 x10^3/uL (0.0-0.2) 09/08/16 04:05 Baso # 0.1 X10^3/uL (0.0-0.1) 09/08/16 04:05 Absolute Nucleated RBC 0.0 /100WBC 09/08/16 04:05 D-Dimer 4310 ng/mL (0-400) H* 09/07/16 12:25 Sodium 137 mmol/L (136-145) 09/08/16 04:05 Corrected Sodium 139 mmol/L (136-145) 09/08/16 04:05 Potassium 3.5 mmol/L (3.5-5.1) 09/08/16 04:05 Chloride 96 mmol/L (98-107) L 09/08/16 04:05 Carbon Dioxide 30.7 mmol/L (21-32) 09/08/16 04:05 BUN 17 mg/dL (7-18) 09/08/16 04:05 Creatinine 1.13 mg/dL (0.70-1.30) 09/08/16 04:05 Est GFR (MDRD) Af Amer > 60 (>60) 09/08/16 04:05 Est GFR (MDRD) Non-Af > 60 (>60) 09/08/16 04:05 Glucose 195 mg/dL (65-99) H 09/08/16 04:05 Lactic Acid 1.2 mmol/L (0.4-2.0) 09/07/16 12:25 Calcium 8.7 mg/dL (8.5-10.1) 09/08/16 04:05 Corrected Calcium 10.0 mg/dL (8.5-10.1) 09/08/16 04:05 Total Bilirubin 0.60 mg/dL (0.2-1.0) 09/08/16 04:05 AST 106 Units/L (15-37) H 09/08/16 04:05 ALT 248 Units/L (12-78) H 09/08/16 04:05 Alkaline Phosphatase 117 Units/L (46-116) H 09/08/16 04:05 Total Protein 7.4 g/dL (6.4-8.2) 09/08/16 04:05 Albumin 2.4 g/dL (3.4-5.0) L 09/08/16 04:05 Globulin 5.0 g/dL (2.5-4.5) H 09/08/16 04:05 Albumin/Globulin Ratio 0.5 Ratio (1.1-2.1) L 09/08/16 04:05 Specimen Type Clean catch urine 09/07/16 13:24 Urine Color Dark yellow (YELLOW) 09/07/16 13:24 Urine Appearance Slightly hazy (CLEAR) 09/07/16 13:24 Urine pH 6.0 (5.0 - 8.0) 09/07/16 13:24 Ur Specific [place] 1.015 (1.000-1.030) 09/07/16 13:24 Urine Protein 2+ (NEGATIVE) 09/07/16 13:24 Urine Glucose (UA) 1+ (NEGATIVE) 09/07/16 13:24 Urine Ketones 2+ (NEGATIVE) 09/07/16 13:24 Urine Occult Blood 1+ (NEGATIVE) 09/07/16 13:24 Urine Nitrite Negative (NEGATIVE) 09/07/16 13:24 Urine Bilirubin 1+ (NEGATIVE) 09/07/16 13:24 Urine Urobilinogen 2+ (NORMAL) 09/07/16 13:24 Ur Leukocyte Esterase 3+ (NEGATIVE) 09/07/16 13:24 Urine RBC 0-3 /HPF (NEGATIVE) 09/07/16 13:24 Urine WBC 10-15 /HPF (NEGATIVE) 09/07/16 13:24 Ur Squamous Epith Cells Few /HPF (NEGATIVE) 09/07/16 13:24 Urine Bacteria Trace /HPF (NEGATIVE) 09/07/16 13:24 Urine Mucus Few /HPF (NEGATIVE) 09/07/16 13:24 Ur Culture Indicated? Yes/culture set up 09/07/16 13:24 Acetone, Semi-Quant Negative (NEGATIVE) 09/07/16 12:25 Hospital Course: As stated in the history of present illness patient is a 36-year-old white male who was admitted to [facility] ICU approximately 2 weeks ago due to new onset DKA associated with cellulitis involving the medial aspect of the left thigh and a left suprapubic abscess that spontaneously drained. At that time the patient was treated with IV vancomycin and IV Levaquin for his cellulitis and suprapubic abscess which improved during his admission. CT scan of the lower extremity extending to the suprapubic abscess revealed no abscess formation or fluid collection except for a small amount noted in the suprapubic region which had spontaneously drained. The patient's DKA resolved and the patient was subsequently discharged home on insulin after adequate diabetic teaching and been performedsee previous EMR notes and discharge summary. The patient was previously discharged home on Augmentin and Bactrim. The patient subsequently presented to the [facility] emergency room yesterday complaining of medial left thigh pain. In light of the patient's history of diabetes mellitus; type I and previous large area of cellulitis involving the left lower extremity and previous suprapubic abscess the patient was subsequently readmitted due to by mouth outpatient antibiotic treatment failure and was once again started on IV Levaquin and IV vancomycin. A repeat CT scan of the lower extremity was subsequently ordered; however, the radiologist recommended an MRI which was performed this a.m. I was subsequently contacted by the radiologist due to the marked change in the findings of the left lower extremity compared with the previous CT scan results from approximately 1-2 weeks ago. The radiologist reports a large area of fluid collection approximately 40 cm in length extending from the proximal calf up to the mid thigh region involving the subcutaneous area with probable involvement of the fascial plane. The possibility of developing necrotizing fasciitis was of concern. I subsequently contacted the transfer service at [facility] in [facility] and spoke with the poultry boner as well as the surgeon pediatric orthodontist who agreed to accept the patient in transfer with plans for surgical debridement immediately upon arrival. The patient was subsequently instructed to follow up with my office in one week following discharge from [facility]. - Discharge Plan Disposition: 01 HOME, SELF-CARE Condition: Stable - Follow ups/Referrals Follow ups/Referrals: AMADEO MOREL [Primary Care Provider] - 3 days - Instructions
[2016-09-08 12:47] VITALS: BP 155/91
[2016-09-09] MEDS ORDERED: LEVAQUIN PREMIX IV 750 MG 750 MG/150 ML BAG IV SCH (09:00)
== END 2016-09-08 12:00 | disposition short-term general hospital (02) | DRG 603 ==
LOC: ER 11:45 → MED/SURG 14:58
PROVIDERS: ADMIT Internal Medicine; ATTEND Internal Medicine
DX: L03.116 Cellulitis of left lower limb (principal); E10.65 Type 1 diabetes mellitus with hyperglycemia; M79.662 Pain in left lower leg; M79.89 Other specified soft tissue disorders; E78.2 Mixed hyperlipidemia; I10 Essential (primary) hypertension; N34.2 Other urethritis; E10.628 Type 1 diabetes mellitus with other skin complications
CPT/HCPCS: 36415; 73719; 80053; 81001; 82009; 83605; 85025; 85378; 87040; 87086; 96365; 99284; A4222; Q0169; J2550; J3370

== ENCOUNTER 2017-09-25 15:26 | Inpatient (IN) | payer SELFPAY ==
[2017-09-25 16:55] VITALS: BMI 38.0
--- NOTE | 2017-09-25 16:57 | DR.H&P ---
H&P - History & Physical for Day of: H&P Date: 09/25/17 - Chief Complaint Chief Complaint: FACE SWELLING, PAIN TO LEFT JAW - Allergies Allergies/Adverse Reactions: Allergies Allergy/AdvReac Type Severity Reaction Status Date / Time MS No Known Drug Allergy Allergy Verified 08/23/16 18:00 [No Known Drug Allergy] - History of Present Illness History of Present Illness: 37 WM DIRECT ADMIT FROM DR MCKOY OFFICE WITH CO LEFT LOWER JAW SWELLING WITH KNOT TO LEFT SIDE OF NECK AND UNDER CHIN. PT RECENTLY HAS ORAL EXTRACTION, HAS SEEN DR KITCHEN ORAL SURGEON IN [place], HAS BEEN TAKING PO CLINDAMYCIN. PT CO RUNNING FEVER AND SEVERE PAIN, DIFFICULTLY SWALLOWING. PT HAS PMH OF DM. PT ADMITTED FOR IV ATBX THERAPY, ADMISSION LABS. - Past Medical History Past Medical History: Diabetes, Dyslipidemia, Hypertension - Past Surgical History Surgical History: No History - Family History Family Medical History: Diabetes Mellitus, Hypertension - Social History Does patient currently use any type of tobacco product: No Have you used tobacco products in the last 12 months: No Type of Tobacco Use: None Does any household member use tobacco: No Alcohol Use: None Drug Use: None - Review of Systems Constitutional: Fever, Sweats Eyes: No Symptoms Reported ENT: Mouth Pain, Mouth Swelling, Throat Pain Respiratory: No Symptoms Reported Cardiovascular: No Symptoms Reported Gastrointestinal: Nausea, Vomiting Genitourinary: No Symptoms Reported Musculoskeletal: No Symptoms Reported Skin: Other (REDNESS TO L JAW) Neurological: No Symptoms Reported - Physical Exam Vital Signs: Blood Pressure [Right Arm] 155/91 Blood Pressure [Left Arm] 133/83 Blood Pressure 155/91 Oriented: Normal Eyes: Normal Ear: Normal Nose: Normal Throat: Red Respiratory: Clear Throughout Cardiovascular: Normal : Normal Auscultation: Bowel Sounds: Normal Palpation: Normal Tenderness: Normal Skin: Red, Tender (LOCALIZED TO LEFT LOWER JAW AND UNDER CHIN) Musculoskeletal: Left ( LEFT JAW HINGE) Mood Description: Calm - Assessment/Plan (1) Facial cellulitis Status: Acute Plan: ADMIT ADMISSION LABS. CBC CMP, BLOOD CULTURES. IV VANCOMYCIN, IV ZOSYN. PAIN CONTROL, ORAL CULTURE. CT FACE, BLOOD SUGAR CONTROL (2) Cellulitis Status: Acute (3) Diabetes mellitus type I Qualifiers: Status: Acute
[2017-09-25] MEDS ORDERED: PHARMACY CONSULT - VANCOMYCIN XX SCH (17:10)
[2017-09-25] MEDS ORDERED: TORADOL 30 MG VIAL IVP PRN (17:10)
[2017-09-25] MEDS ORDERED: PERCOCET TAB 5/325 MG PO PRN (17:10)
[2017-09-25 17:44] LABS: BASOPHILS # (AUTO) 0.2 X10^3/uL (0.0-0.1); EOSINOPHILS # (AUTO) 0.2 x10^3/uL (0.0-0.2); EOSINOPHILS % (AUTO) 1.1 % (0.9-2.9); HEMATOCRIT 44.4 % (42.0-54.0); HEMOGLOBIN 14.9 g/dL (13.5-18.0); LYMPHOCYTES # (AUTO) 3.4 X10^3/uL (1.3-2.9); LYMPHOCYTES % (AUTO) 14.9 % (21.0-51.0); MEAN CORPUSCULAR HEMOGLOBIN 30.9 pg (27.0-34.0); MEAN CORPUSCULAR HGB CONC 33.5 g/dL (33.0-35.0); MEAN CORPUSCULAR VOLUME 92.3 fL (80.0-100.0); MEAN PLATELET VOLUME 8.8 fL (7.4-11.0); MONOCYTES # (AUTO) 0.8 x10^3/uL (0.3-0.8); MONOCYTES % (AUTO) 3.6 % (0.0-13.0); NEUTROPHILS # (AUTO) 17.9 x10^3/uL (2.2-4.8); NEUTROPHILS % (AUTO) 79.4 % (42.0-75.0); PLATELET COUNT 535 X10^3/uL (150.0-450.0); RED BLOOD COUNT 4.81 X10^6/uL (4.7-6.0); RED CELL DISTRIBUTION WIDTH 14.1 % (11.6-16.5); WHITE BLOOD COUNT 22.6 X10^3/uL (3.6-10.0)
[2017-09-25 17:46] LABS: ALANINE AMINOTRANSFERASE 33 Units/L (12-78); ALBUMIN 2.6 g/dL (3.4-5.0); ALKALINE PHOSPHATASE 160 Units/L (46-116); ASPARTATE AMINO TRANSFERASE 10 Units/L (15-37); BLOOD UREA NITROGEN 15 mg/dL (7-18); CALCIUM 8.8 mg/dL (8.5-10.1); CHLORIDE 91 mmol/L (98-107); COR CA(FOR HYPOALB) 9.9 mg/dL (8.5-10.1); CREATININE 1.04 mg/dL (0.70-1.30); SODIUM 127 mmol/L (136-145); eGFR BLACK RACES > 60 (>60); eGFR NON BLACK RACES > 60 (>60)
[2017-09-25 17:55] LABS: COR NA(FOR HYPERGLY) 138 mmol/L (136-145)
[2017-09-25 17:56] LABS: CARBON DIOXIDE 9.6 mmol/L (21-32)
[2017-09-25 18:00] LABS: BAND NEUTROPHILS % 13 % (0-10)
[2017-09-25 18:02] LABS: PLATELET MORPHOLOGY COMMENT NORMAL (NORMAL)
[2017-09-25] MEDS ORDERED: NS 1000 ML 1,000 ML IV ONE (18:03)
[2017-09-25] MEDS ORDERED: NS 1000 ML 1,000 ML ONE (18:06)
[2017-09-25] MEDS: HumuLIN R SUBCUT PRN ×2 (18:12→21:59)
[2017-09-25] MEDS ORDERED: LEVSIN/MAALOX/LIDOC VISC PO ONE (21:03)
[2017-09-25] MEDS ORDERED: ZOFRAN TAB 4 MG SL PRN (21:06)
[2017-09-25] MEDS ORDERED: ZOFRAN INJ 4 MG VIAL IVP PRN (21:09)
[2017-09-25] MEDS ORDERED: NS 100 ML IV + SPIKE MINIBAG* 100 ML IV ONE (21:10)
[2017-09-25] MEDS: ZOSYN VIAL 3.375 GM IV SCH (21:35)
[2017-09-25] MEDS: MILK OF MAGNESIA PO SCH (21:35)
[2017-09-25] MEDS: NS 1000 ML 1,000 ML IV SCH (21:35)
[2017-09-25] MEDS: SNACK - Diabetic Appropriate PO SCH (21:36)
[2017-09-25] MEDS: PEPCID 20 MG IV PREMIX* 20 MG/50 ML BAG IV SCH (21:50)
[2017-09-25] MEDS: VANCOMYCIN 1 GM PREMIX (ADDVANTAGE) 250 ML IV SCH (22:00)
[2017-09-25] MEDS ORDERED: PHENERGAN INJ 25 MG IV PRN (22:16)
--- NOTE | 2017-09-26 00:23 | CT ---
CT maxillofacial without contrast Indication: Facial cellulitis. Evaluate for abscess Technique: Helical images through the face without contrast. Coronal and sagittal reformats provided. Findings: Review of brain parenchyma shows no acute abnormality. The orbits are normal. Conal fat is normal. Limited images through the upper cervical spine show no acute fracture. Mastoid air cells are clear. Temporomandibular joints are normal. Zygomatic arches are intact. Nasal bones are normal. There is extensive dental disease, with gas and fluid in the left premolar socket as well as the jesus ibular incisors. Maxillary incisors, canines and premolar teeth show dental caries as well. There is soft tissue swelling and gas in the left perimandibular soft tissues, extending cranially to the leve l of the maxilla see axial images 24 through 50 left submandibular fluid and gas is seen on axial edgardo ge 19 no definite dehiscence of bone in identified. The size of the peripherally hyperdense in centra lly fluid density with gas collection is difficult to measure accurately given morphology around the jaw and face, but measures roughly 4.5 x 1.9 x 7.0 cm on axial image 27 and coronal image 12 (AP, tra ns, cc). Thickening of the left platysma with reactive submandibular and left internal jugular chain adenopath y noted Impression: 1. Left facial abscess, as above. 2. Extensive dental disease, worse in the left mandible, likely the source of the infection. Oral max illofacial surgeon follow-up recommend Reported By:
--- NOTE | 2017-09-26 00:25 | RAD ---
Acute abdomen series-supine, upright and chest, three views, 4 images Indication: Nausea and vomiting. Facial abscess Findings: Chest radiograph is normal. Gas and stool are seen in the colon without free air, pneumatos is or dilated loop of bowel. Impression: No high-grade obstruction, free air or pneumatosis Reported By:
[2017-09-26] MEDS: HumuLIN R SUBCUT PRN ×4 (01:50→22:14)
[2017-09-26] MEDS: NS 1000 ML 1,000 ML IV SCH (02:07)
[2017-09-26 05:09] LABS: BILIRUBIN,URINE NEGATIVE (NEGATIVE); BLOOD/HEMOGLOBIN,URINE 4+ (NEGATIVE); GLUCOSE, URINE 4+ (NEGATIVE); KETONES,URINE 4+ (NEGATIVE); LEUKOCYTE ESTERASE ,URINE NEGATIVE (NEGATIVE); NITRITES,URINE NEGATIVE (NEGATIVE); PROTEIN,URINE 2+ (NEGATIVE); UROBILINOGEN,URINE NORMAL (NORMAL)
[2017-09-26 05:21] LABS: COLOR,URINE YELLOW (YELLOW)
[2017-09-26 05:22] LABS: APPEARANCE,URINE SLIGHTLY HAZY (CLEAR); BACTERIA,URINE TRACE /HPF (NEGATIVE); MUCUS,URINE MODERATE /HPF (NEGATIVE); RBC,URINE 0-2 /HPF (NONE SEEN); SQUAMOUS EPITHELIAL CELL,UR FEW /HPF (NEGATIVE); YEAST,URINE FEW /HPF (NEGATIVE)
[2017-09-26] MEDS ORDERED: NS 100 ML IV + SPIKE MINIBAG* 100 ML IV ONE ×3 (05:36→22:29)
[2017-09-26] MEDS: ZOSYN VIAL 3.375 GM IV SCH ×3 (05:55→22:12)
[2017-09-26] MEDS: VANCOMYCIN 1 GM PREMIX (ADDVANTAGE) 250 ML IV SCH ×3 (05:55→22:12)
[2017-09-26 06:16] LABS: BASOPHILS # (AUTO) 0.1 X10^3/uL (0.0-0.1); BASOPHILS % (AUTO) 0.4 % (0.2-1.0); EOSINOPHILS # (AUTO) 0.1 x10^3/uL (0.0-0.2); EOSINOPHILS % (AUTO) 0.4 % (0.9-2.9); HEMATOCRIT 45.3 % (42.0-54.0); HEMOGLOBIN 14.9 g/dL (13.5-18.0); LYMPHOCYTES # (AUTO) 2.5 X10^3/uL (1.3-2.9); LYMPHOCYTES % (AUTO) 7.9 % (21.0-51.0); MEAN CORPUSCULAR HEMOGLOBIN 30.4 pg (27.0-34.0); MEAN CORPUSCULAR VOLUME 92.3 fL (80.0-100.0); MONOCYTES # (AUTO) 1.6 x10^3/uL (0.3-0.8); MONOCYTES % (AUTO) 5.1 % (0.0-13.0); NEUTROPHILS # (AUTO) 27.6 x10^3/uL (2.2-4.8); NEUTROPHILS % (AUTO) 86.2 % (42.0-75.0); PLATELET COUNT 430 X10^3/uL (150.0-450.0); RED BLOOD COUNT 4.91 X10^6/uL (4.7-6.0); RED CELL DISTRIBUTION WIDTH 13.6 % (11.6-16.5)
[2017-09-26 06:30] LABS: ALANINE AMINOTRANSFERASE 36 Units/L (12-78); ALBUMIN 2.4 g/dL (3.4-5.0); ALKALINE PHOSPHATASE 170 Units/L (46-116); ASPARTATE AMINO TRANSFERASE 47 Units/L (15-37); BLOOD UREA NITROGEN 16 mg/dL (7-18); CALCIUM 8.5 mg/dL (8.5-10.1); CHLORIDE 102 mmol/L (98-107); COR CA(FOR HYPOALB) 9.8 mg/dL (8.5-10.1); CREATININE 0.95 mg/dL (0.70-1.30); TOTAL PROTEIN 7.7 g/dL (6.4-8.2); eGFR BLACK RACES > 60 (>60); eGFR NON BLACK RACES > 60 (>60)
[2017-09-26 06:48] LABS: CARBON DIOXIDE 10.4 mmol/L (21-32)
[2017-09-26 06:49] LABS: COR NA(FOR HYPERGLY) 143 mmol/L (136-145); SODIUM 136 mmol/L (136-145)
[2017-09-26 06:51] LABS: BAND NEUTROPHILS % 15 % (0-10); METAMYELOCYTES % 12
[2017-09-26 06:52] LABS: PLATELET MORPHOLOGY COMMENT NORMAL (NORMAL)
[2017-09-26] MEDS: MILK OF MAGNESIA PO SCH ×2 (09:03→22:11)
[2017-09-26] MEDS: PEPCID 20 MG IV PREMIX* 20 MG/50 ML BAG IV SCH ×2 (09:03→22:12)
[2017-09-26] MEDS: PROTONIX INJ 40 MG VIAL IVP SCH ×2 (10:05→22:11)
[2017-09-26] MEDS: DEMEROL INJ IVP PRN ×2 (10:06→22:22)
[2017-09-26] MEDS: PHENERGAN INJ 25 MG IV PRN (10:07)
[2017-09-26] MEDS: ZESTRIL TAB 5 MG PO SCH (10:15)
[2017-09-26] MEDS ORDERED: GLUCOPHAGE ONE (16:32)
[2017-09-26] MEDS: GLUCOPHAGE PO SCH (16:46)
[2017-09-26] MEDS: GLUCOTROL PO SCH (16:46)
[2017-09-26] MEDS: SNACK - Diabetic Appropriate PO SCH (21:00)
[2017-09-26 21:18] LABS: CREATININE 0.69 mg/dL (0.70-1.30)
[2017-09-26] MEDS ORDERED: DEMEROL INJ ONE (22:17)
[2017-09-27] MEDS ORDERED: NS 500 ML IV 500 ML IV ONE (01:53)
[2017-09-27] MEDS ORDERED: GLUCOPHAGE ONE (05:50)
[2017-09-27] MEDS ORDERED: NS 100 ML IV + SPIKE MINIBAG* 100 ML IV ONE (06:01)
[2017-09-27] MEDS: GLUCOTROL PO SCH (06:08)
[2017-09-27] MEDS: GLUCOPHAGE PO SCH (06:08)
[2017-09-27] MEDS: ZOSYN VIAL 3.375 GM IV SCH (06:09)
[2017-09-27] MEDS: VANCOMYCIN 1 GM PREMIX (ADDVANTAGE) 250 ML IV SCH (06:09)
[2017-09-27 06:27] LABS: BASOPHILS # (AUTO) 0.1 X10^3/uL (0.0-0.1); BASOPHILS % (AUTO) 0.3 % (0.2-1.0); HEMATOCRIT 42.7 % (42.0-54.0); HEMOGLOBIN 14.3 g/dL (13.5-18.0); LYMPHOCYTES # (AUTO) 2.4 X10^3/uL (1.3-2.9); LYMPHOCYTES % (AUTO) 5.9 % (21.0-51.0); MEAN CORPUSCULAR HEMOGLOBIN 30.6 pg (27.0-34.0); MEAN CORPUSCULAR HGB CONC 33.6 g/dL (33.0-35.0); MEAN PLATELET VOLUME 8.8 fL (7.4-11.0); MONOCYTES # (AUTO) 0.9 x10^3/uL (0.3-0.8); MONOCYTES % (AUTO) 2.3 % (0.0-13.0); NEUTROPHILS % (AUTO) 91.5 % (42.0-75.0); PLATELET COUNT 378 X10^3/uL (150.0-450.0); RED BLOOD COUNT 4.69 X10^6/uL (4.7-6.0); RED CELL DISTRIBUTION WIDTH 14.3 % (11.6-16.5)
[2017-09-27 06:34] LABS: WHITE BLOOD COUNT 40.4 X10^3/uL (3.6-10.0)
[2017-09-27 06:52] LABS: ALANINE AMINOTRANSFERASE 36 Units/L (12-78); ALBUMIN 2.2 g/dL (3.4-5.0); ALKALINE PHOSPHATASE 149 Units/L (46-116); ASPARTATE AMINO TRANSFERASE 39 Units/L (15-37); BLOOD UREA NITROGEN 15 mg/dL (7-18); CALCIUM 8.1 mg/dL (8.5-10.1); CHLORIDE 98 mmol/L (98-107); COR CA(FOR HYPOALB) 9.5 mg/dL (8.5-10.1); COR NA(FOR HYPERGLY) 138 mmol/L (136-145); CREATININE 1.02 mg/dL (0.70-1.30); SODIUM 131 mmol/L (136-145); TOTAL PROTEIN 7.1 g/dL (6.4-8.2); eGFR BLACK RACES > 60 (>60); eGFR NON BLACK RACES > 60 (>60)
[2017-09-27 07:06] LABS: CARBON DIOXIDE 7.1 mmol/L (21-32)
[2017-09-27 07:11] LABS: BAND NEUTROPHILS % 25 % (0-10); METAMYELOCYTES % 5; PLATELET MORPHOLOGY COMMENT NORMAL (NORMAL)
[2017-09-27] MEDS: NS 1000 ML 1,000 ML IV SCH ×3 (07:18→22:02)
[2017-09-27] MEDS: PROTONIX INJ 40 MG VIAL IVP SCH ×2 (08:52→22:04)
[2017-09-27] MEDS: ZESTRIL TAB 5 MG PO SCH (08:52)
[2017-09-27] MEDS: PEPCID 20 MG IV PREMIX* 20 MG/50 ML BAG IV SCH (08:52)
[2017-09-27] MEDS: MILK OF MAGNESIA PO SCH ×2 (08:52→22:03)
[2017-09-27] MEDS: PHENERGAN INJ 25 MG IV PRN (10:10)
--- NOTE | 2017-09-27 10:15 | RAD ---
HISTORY: New admission for left mandibular swelling status post tooth extraction, fever, pain, dysph agia, new admission for IV antibiotic treatment Study: PA and lateral chest Comparison: August 26, 2016 Findings: There are low lung volumes. The trachea is midline. The cardiac silhouette is unremarkable. The waldemar gs are clear without focal mass or consolidation. There is no effusion or pneumothorax. The bony th orax is grossly unremarkable. IMPRESSION: No acute cardiopulmonary disease. Reported By:
[2017-09-27] MEDS: DEMEROL INJ IVP PRN ×2 (10:19→14:15)
--- NOTE | 2017-09-27 13:41 | PCM.PROG ---
Progress Note - Progress Note for Day of Date: 09/26/17 - Subjective Subjective: 37 WM ADMITTED ON 09/25 WITH FACIAL CELLULITIS AND DENTAL ABSCESS FOLLOWING EXTRACTIONS. PT IS ON IV VANCOMYCIN AND IV ZOSYN, CONTINUE LEUKOCYTOSIS THIS AM AND CO PAIN. PT IS STATING NAUSEA IS IMPROVING AND ASKING FOR LIQUIDS. - Past Medical Family Social History Past Med/Fam/Surg Hx: No changes since H&P Allergies: Allergies morphine Adverse Reaction (Verified 09/26/17 01:25) - Review of Systems ROS: No change since H&P - Vital Signs and I&O's Vital Signs: Temperature 97.7 F Pulse Rate [Right Brachial] 113 Respiratory Rate 24 Blood Pressure [Right Arm] 179/96 Blood Pressure [Left Arm] 137/75 Blood Pressure 155/91 O2 Sat by Pulse Oximetry 100 Intake and Output: Intake & Output 09/25/17 09/26/17 09/27/17 09/28/17 11:59 11:59 11:59 11:59 Intake Total 1525 1160 Output Total 4200 800 Balance -2675 360 - Physical Exam Oriented: Normal Eyes: Normal Ear: Normal Nose: Normal Throat: Red Respiratory: Normal Cardiovascular: Normal : Normal Auscultation: Bowel Sounds: Normal Tenderness: Normal Skin: Red, Tender (LOCALIZED TO LEFT LOWER JAW AND UNDER CHIN) Musculoskeletal: Left ( LEFT JAW HINGE) Mood Description: Calm Speech Pattern: Clear, Appropriate - Laboratory and Diagnostics Result Diagrams: 09/27/17 05:35 09/27/17 12:10 Labs: 09/25/17 17:26 Blood Blood Culture - Preliminary 09/25/17 17:21 Blood Blood Culture - Preliminary 09/26/17 18:45 Mouth Wound Culture - Preliminary Laboratory WBC 40.4 X10^3/uL (3.6-10.0) H* D 09/27/17 05:35 RBC 4.69 X10^6/uL (4.7-6.0) L 09/27/17 05:35 Hgb 14.3 g/dL (13.5-18.0) 09/27/17 05:35 Hct 42.7 % (42.0-54.0) 09/27/17 05:35 MCV 91.0 fL (80.0-100.0) 09/27/17 05:35 MCH 30.6 pg (27.0-34.0) 09/27/17 05:35 MCHC 33.6 g/dL (33.0-35.0) 09/27/17 05:35 RDW 14.3 % (11.6-16.5) 09/27/17 05:35 Plt Count 378 X10^3/uL (150.0-450.0) 09/27/17 05:35 Plt Count Comment Adequate (ADEQUATE) 09/27/17 05:35 MPV 8.8 fL (7.4-11.0) 09/27/17 05:35 Neut % (Auto) 91.5 % (42.0-75.0) H 09/27/17 05:35 Lymph % (Auto) 5.9 % (21.0-51.0) L 09/27/17 05:35 [place] % (Auto) 2.3 % (0.0-13.0) 09/27/17 05:35 Eos % (Auto) 0.0 % (0.9-2.9) L 09/27/17 05:35 Baso % (Auto) 0.3 % (0.2-1.0) 09/27/17 05:35 Neut # (Auto) 37.0 x10^3/uL (2.2-4.8) H 09/27/17 05:35 Lymph # (Auto) 2.4 X10^3/uL (1.3-2.9) 09/27/17 05:35 [place] # (Auto) 0.9 x10^3/uL (0.3-0.8) H 09/27/17 05:35 Eos # (Auto) 0.0 x10^3/uL (0.0-0.2) 09/27/17 05:35 Baso # (Auto) 0.1 X10^3/uL (0.0-0.1) 09/27/17 05:35 Absolute Nucleated RBC 0.0 /100WBC 09/27/17 05:35 Total Counted 100 09/27/17 05:35 Neutrophils % (Manual) 60 % (39-76) 09/27/17 05:35 Band Neutrophils % 25 % (0-10) H 09/27/17 05:35 Lymphocytes % (Manual) 7 % (13-43) L 09/27/17 05:35 Monocytes % (Manual) 3 % (4-9) L 09/27/17 05:35 Eosinophils % (Manual) 2 % (0-6) 09/25/17 17:04 Metamyelocytes % 5 09/27/17 05:35 Atypical Lymphocytes 6 09/25/17 17:04 Plt Morphology Comment Normal (NORMAL) 09/27/17 05:35 RBC Morphology Normal (NORMAL) 09/27/17 05:35 Sodium 131 mmol/L (136-145) L 09/27/17 05:35 Corrected Sodium 138 mmol/L (136-145) 09/27/17 05:35 Potassium 3.7 mmol/L (3.5-5.1) 09/27/17 05:35 Chloride 98 mmol/L (98-107) 09/27/17 05:35 Carbon Dioxide 7.1 mmol/L (21-32) L* 09/27/17 05:35 BUN 15 mg/dL (7-18) 09/27/17 05:35 Creatinine 1.02 mg/dL (0.70-1.30) 09/27/17 05:35 Est GFR (MDRD) Af Amer > 60 (>60) 09/27/17 05:35 Est GFR (MDRD) Non-Af > 60 (>60) 09/27/17 05:35 Glucose 448 mg/dL (65-99) H 09/27/17 12:10 POC Glucose (mg/dL) 433 mg/dL (65-99) H* 09/27/17 11:53 Calcium 8.1 mg/dL (8.5-10.1) L 09/27/17 05:35 Corrected Calcium 9.5 mg/dL (8.5-10.1) 09/27/17 05:35 Total Bilirubin 0.50 mg/dL (0.2-1.0) 09/27/17 05:35 AST 39 Units/L (15-37) H 09/27/17 05:35 ALT 36 Units/L (12-78) 09/27/17 05:35 Alkaline Phosphatase 149 Units/L (46-116) H 09/27/17 05:35 Total Protein 7.1 g/dL (6.4-8.2) 09/27/17 05:35 Albumin 2.2 g/dL (3.4-5.0) L 09/27/17 05:35 Globulin 4.9 g/dL (2.5-4.5) H 09/27/17 05:35 Albumin/Globulin Ratio 0.4 Ratio (1.1-2.1) L 09/27/17 05:35 Specimen Type Clean catch urine 09/26/17 04:58 Urine Color Yellow (YELLOW) 09/26/17 04:58 Urine Appearance Slightly hazy (CLEAR) 09/26/17 04:58 Urine pH 5.0 (5.0 - 8.0) 09/26/17 04:58 Ur Specific [place] 1.020 (1.000-1.030) 09/26/17 04:58 Urine Protein 2+ (NEGATIVE) 09/26/17 04:58 Urine Glucose (UA) 4+ (NEGATIVE) 09/26/17 04:58 Urine Ketones 4+ (NEGATIVE) 09/26/17 04:58 Urine Occult Blood 4+ (NEGATIVE) 09/26/17 04:58 Urine Nitrite Negative (NEGATIVE) 09/26/17 04:58 Urine Bilirubin Negative (NEGATIVE) 09/26/17 04:58 Urine Urobilinogen Normal (NORMAL) 09/26/17 04:58 Ur Leukocyte Esterase Negative (NEGATIVE) 09/26/17 04:58 Urine RBC 0-2 /HPF (NONE SEEN) 09/26/17 04:58 Urine WBC 0-2 /HPF (NONE SEEN) 09/26/17 04:58 Ur Squamous Epith Cells Few /HPF (NEGATIVE) 09/26/17 04:58 Urine Bacteria Trace /HPF (NEGATIVE) 09/26/17 04:58 Urine Mucus Moderate /HPF (NEGATIVE) 09/26/17 04:58 Urine Yeast Few /HPF (NEGATIVE) 09/26/17 04:58 Ur Culture Indicated? No/not indicated 09/26/17 04:58 Vancomycin Trough 11.0 ug/mL (15-20) L 09/26/17 20:47 Acetone, Semi-Quant Small (NEGATIVE) H 09/26/17 05:08 - Plan (1) Facial cellulitis Status: Acute Plan: CBC CMP, BLOOD CULTURES. IV VANCOMYCIN, IV ZOSYN. PAIN CONTROL, ORAL CULTURE PENDING. CT FACE ON ADMISSION, BLOOD SUGAR CONTROL (2) Cellulitis Status: Acute (3) Diabetes mellitus type I Status: Acute Qualifiers: Plan: SSI
--- NOTE | 2017-09-27 13:45 | PCM.PROG ---
Progress Note - Progress Note for Day of Date: 09/27/17 - Subjective Subjective: 37 WM ADMITTED ON 09/25 WITH FACIAL CELLULITIS AND DENTAL ABSCESS FOLLOWING EXTRACTIONS. PT IS ON IV VANCOMYCIN AND IV ZOSYN, CONTINUE LEUKOCYTOSIS THIS AM AND CO PAIN. PT DOES HAVE SLIGHT IMPROVEMENT IN SWELLING. PT STATES IT IS EASIER TO TALK AND SWALLOW. WBC 40.4 PLAN TO ADD MEROPENEM, AGGRESSIVE HYDRATION, CXR THIS AM, CONTINUE PAIN CONTROL, BS CONTROL - Past Medical Family Social History Past Med/Fam/Surg Hx: No changes since H&P Allergies: Allergies morphine Adverse Reaction (Verified 09/26/17 01:25) - Review of Systems ROS: No change since H&P - Vital Signs and I&O's Vital Signs: Temperature 97.7 F Pulse Rate [Right Brachial] 113 Respiratory Rate 24 Blood Pressure [Right Arm] 179/96 Blood Pressure [Left Arm] 137/75 Blood Pressure 155/91 O2 Sat by Pulse Oximetry 100 Intake and Output: Intake & Output 09/25/17 09/26/17 09/27/17 09/28/17 11:59 11:59 11:59 11:59 Intake Total 1525 1160 Output Total 4200 800 Balance -2675 360 - Physical Exam Oriented: Normal Eyes: Normal Ear: Normal Nose: Normal Throat: Red Respiratory: Normal Cardiovascular: Normal : Normal Auscultation: Bowel Sounds: Normal Tenderness: Normal Skin: Red, Tender (LOCALIZED TO LEFT LOWER JAW AND UNDER CHIN) Musculoskeletal: Left ( LEFT JAW HINGE) Mood Description: Calm Speech Pattern: Clear, Appropriate - Laboratory and Diagnostics Result Diagrams: 09/27/17 05:35 09/27/17 12:10 Labs: 09/25/17 17:26 Blood Blood Culture - Preliminary 09/25/17 17:21 Blood Blood Culture - Preliminary 09/26/17 18:45 Mouth Wound Culture - Preliminary Laboratory WBC 40.4 X10^3/uL (3.6-10.0) H* D 09/27/17 05:35 RBC 4.69 X10^6/uL (4.7-6.0) L 09/27/17 05:35 Hgb 14.3 g/dL (13.5-18.0) 09/27/17 05:35 Hct 42.7 % (42.0-54.0) 09/27/17 05:35 MCV 91.0 fL (80.0-100.0) 09/27/17 05:35 MCH 30.6 pg (27.0-34.0) 09/27/17 05:35 MCHC 33.6 g/dL (33.0-35.0) 09/27/17 05:35 RDW 14.3 % (11.6-16.5) 09/27/17 05:35 Plt Count 378 X10^3/uL (150.0-450.0) 09/27/17 05:35 Plt Count Comment Adequate (ADEQUATE) 09/27/17 05:35 MPV 8.8 fL (7.4-11.0) 09/27/17 05:35 Neut % (Auto) 91.5 % (42.0-75.0) H 09/27/17 05:35 Lymph % (Auto) 5.9 % (21.0-51.0) L 09/27/17 05:35 [place] % (Auto) 2.3 % (0.0-13.0) 09/27/17 05:35 Eos % (Auto) 0.0 % (0.9-2.9) L 09/27/17 05:35 Baso % (Auto) 0.3 % (0.2-1.0) 09/27/17 05:35 Neut # (Auto) 37.0 x10^3/uL (2.2-4.8) H 09/27/17 05:35 Lymph # (Auto) 2.4 X10^3/uL (1.3-2.9) 09/27/17 05:35 [place] # (Auto) 0.9 x10^3/uL (0.3-0.8) H 09/27/17 05:35 Eos # (Auto) 0.0 x10^3/uL (0.0-0.2) 09/27/17 05:35 Baso # (Auto) 0.1 X10^3/uL (0.0-0.1) 09/27/17 05:35 Absolute Nucleated RBC 0.0 /100WBC 09/27/17 05:35 Total Counted 100 09/27/17 05:35 Neutrophils % (Manual) 60 % (39-76) 09/27/17 05:35 Band Neutrophils % 25 % (0-10) H 09/27/17 05:35 Lymphocytes % (Manual) 7 % (13-43) L 09/27/17 05:35 Monocytes % (Manual) 3 % (4-9) L 09/27/17 05:35 Eosinophils % (Manual) 2 % (0-6) 09/25/17 17:04 Metamyelocytes % 5 09/27/17 05:35 Atypical Lymphocytes 6 09/25/17 17:04 Plt Morphology Comment Normal (NORMAL) 09/27/17 05:35 RBC Morphology Normal (NORMAL) 09/27/17 05:35 Sodium 131 mmol/L (136-145) L 09/27/17 05:35 Corrected Sodium 138 mmol/L (136-145) 09/27/17 05:35 Potassium 3.7 mmol/L (3.5-5.1) 09/27/17 05:35 Chloride 98 mmol/L (98-107) 09/27/17 05:35 Carbon Dioxide 7.1 mmol/L (21-32) L* 09/27/17 05:35 BUN 15 mg/dL (7-18) 09/27/17 05:35 Creatinine 1.02 mg/dL (0.70-1.30) 09/27/17 05:35 Est GFR (MDRD) Af Amer > 60 (>60) 09/27/17 05:35 Est GFR (MDRD) Non-Af > 60 (>60) 09/27/17 05:35 Glucose 448 mg/dL (65-99) H 09/27/17 12:10 POC Glucose (mg/dL) 433 mg/dL (65-99) H* 09/27/17 11:53 Calcium 8.1 mg/dL (8.5-10.1) L 09/27/17 05:35 Corrected Calcium 9.5 mg/dL (8.5-10.1) 09/27/17 05:35 Total Bilirubin 0.50 mg/dL (0.2-1.0) 09/27/17 05:35 AST 39 Units/L (15-37) H 09/27/17 05:35 ALT 36 Units/L (12-78) 09/27/17 05:35 Alkaline Phosphatase 149 Units/L (46-116) H 09/27/17 05:35 Total Protein 7.1 g/dL (6.4-8.2) 09/27/17 05:35 Albumin 2.2 g/dL (3.4-5.0) L 09/27/17 05:35 Globulin 4.9 g/dL (2.5-4.5) H 09/27/17 05:35 Albumin/Globulin Ratio 0.4 Ratio (1.1-2.1) L 09/27/17 05:35 Specimen Type Clean catch urine 09/26/17 04:58 Urine Color Yellow (YELLOW) 09/26/17 04:58 Urine Appearance Slightly hazy (CLEAR) 09/26/17 04:58 Urine pH 5.0 (5.0 - 8.0) 09/26/17 04:58 Ur Specific [place] 1.020 (1.000-1.030) 09/26/17 04:58 Urine Protein 2+ (NEGATIVE) 09/26/17 04:58 Urine Glucose (UA) 4+ (NEGATIVE) 09/26/17 04:58 Urine Ketones 4+ (NEGATIVE) 09/26/17 04:58 Urine Occult Blood 4+ (NEGATIVE) 09/26/17 04:58 Urine Nitrite Negative (NEGATIVE) 09/26/17 04:58 Urine Bilirubin Negative (NEGATIVE) 09/26/17 04:58 Urine Urobilinogen Normal (NORMAL) 09/26/17 04:58 Ur Leukocyte Esterase Negative (NEGATIVE) 09/26/17 04:58 Urine RBC 0-2 /HPF (NONE SEEN) 09/26/17 04:58 Urine WBC 0-2 /HPF (NONE SEEN) 09/26/17 04:58 Ur Squamous Epith Cells Few /HPF (NEGATIVE) 09/26/17 04:58 Urine Bacteria Trace /HPF (NEGATIVE) 09/26/17 04:58 Urine Mucus Moderate /HPF (NEGATIVE) 09/26/17 04:58 Urine Yeast Few /HPF (NEGATIVE) 09/26/17 04:58 Ur Culture Indicated? No/not indicated 09/26/17 04:58 Vancomycin Trough 11.0 ug/mL (15-20) L 09/26/17 20:47 Acetone, Semi-Quant Small (NEGATIVE) H 09/26/17 05:08 - Plan (1) Facial cellulitis Status: Acute Plan: CBC CMP, BLOOD CULTURES. IV VANCOMYCIN, IV ZOSYN. PAIN CONTROL, ORAL CULTURE PENDING. CT FACE ON ADMISSION, BLOOD SUGAR CONTROL (2) Cellulitis Status: Acute (3) Diabetes mellitus type I Status: Acute Qualifiers: Plan: SSI
[2017-09-27] MEDS: HumuLIN R SUBCUT PRN (13:50)
[2017-09-27] MEDS: ZOSYN VIAL 4.5 GM 4.5 GM in NS 100 ML IV + SPIKE MINIBAG* 100 ML IV SCH ×3 (13:53→22:21)
[2017-09-27] MEDS ORDERED: PHARMACY CONSULT - DOSE _____ XX SCH (14:00)
[2017-09-27] MEDS ORDERED: VANCOMYCIN HCL 500 MG VIAL 250 MG, VANCOMYCIN HCL 1 GM VIAL 1 GM in D5W 250 ML IV 250 ML IV SCH ×2 (14:00→22:00)
[2017-09-27] MEDS ORDERED: LEVEMIR SC SCH ×2 (14:00→21:00)
[2017-09-27] MEDS ORDERED: MERREM VIAL 1 GM in NS 100 ML IV + SPIKE MINIBAG* 100 ML IV SCH (14:00)
[2017-09-27] MEDS ORDERED: NS 250 ML IV 250 ML IV ONE (15:18)
[2017-09-27 16:58] LABS: ABG BASE EXCESS -20.2 mmol/L (-2.0-2.0)
[2017-09-27] MEDS ORDERED: NS 1000 ML 1,000 ML IV ONE ×4 (16:59→18:03)
[2017-09-27 17:00] LABS: ABG ALLEN TEST POS; ABG HCO3 5.7 mmol/L (22-26)
[2017-09-27] MEDS ORDERED: NS 100 ML IV 100 ML IV ONE ×2 (17:15→17:24)
[2017-09-27] MEDS ORDERED: DEMEROL INJ IVP PRN (17:36)
[2017-09-27] MEDS ORDERED: ZOFRAN TAB 4 MG SL PRN (17:36)
[2017-09-27] MEDS ORDERED: PERCOCET TAB 5/325 MG PO PRN (17:36)
[2017-09-27] MEDS ORDERED: TORADOL 30 MG VIAL IVP PRN (17:36)
[2017-09-27] MEDS ORDERED: PHENERGAN INJ 25 MG IV PRN (17:36)
[2017-09-27] MEDS ORDERED: ZOFRAN INJ 4 MG VIAL IVP PRN (17:36)
[2017-09-27] MEDS ORDERED: HumuLIN R SUBCUT PRN (17:36)
[2017-09-27 18:59] LABS: ABG ALLEN TEST POS; ABG BASE EXCESS -18.6 mmol/L (-2.0-2.0); ABG HCO3 7.6 mmol/L (22-26)
[2017-09-27] MEDS ORDERED: SNACK - Diabetic Appropriate PO SCH ×4 (20:00)
[2017-09-27] MEDS ORDERED: XYLOCAINE 1 % (PLAIN) ONE ×3 (20:19→20:38)
[2017-09-27] MEDS ORDERED: XYLOCAINE 1 % (PLAIN) IM ONE (20:20)
[2017-09-27] MEDS ORDERED: PEPCID 20 MG IV PREMIX* 20 MG/50 ML BAG IV SCH (21:00)
[2017-09-27] MEDS ORDERED: NYSTATIN POWDER ONE (21:18)
--- NOTE | 2017-09-27 21:21 | RAD ---
Chest, AP portable Indication: CVL placement Comparison: 09/27/2017 Findings: There has been interval placement of a right subclavian approach CVL. The distal portion of the catheter is not well seen, obscured by superimposed mediastinal and osseous structures. The tip is not definitely visualized, but appears to overlie the lower portion of the heart in the expected l ocation of the inferior right atrium. There is decreased depth of inspiration with mild bibasilar atelectasis. Cardiac and mediastinal cont ours are within normal limits, accounting for technique and low lung volumes. No significant pneumoth orax is observed. Impression: Suboptimal visualization of the CVL tip secondary to technique and superimposed structures, but the t ip appears to overlie the lower portion of the right atrium. Consider repeat imaging with improved po sitioning and inspiration, for better evaluation. Reported By:
[2017-09-27 21:33] LABS: BASOPHILS # (AUTO) 0.2 X10^3/uL (0.0-0.1); BASOPHILS % (AUTO) 0.5 % (0.2-1.0); EOSINOPHILS % (AUTO) 0.1 % (0.9-2.9); HEMATOCRIT 36.1 % (42.0-54.0); HEMOGLOBIN 12.1 g/dL (13.5-18.0); LYMPHOCYTES # (AUTO) 1.2 X10^3/uL (1.3-2.9); MEAN CORPUSCULAR HEMOGLOBIN 29.9 pg (27.0-34.0); MEAN CORPUSCULAR HGB CONC 33.4 g/dL (33.0-35.0); MEAN CORPUSCULAR VOLUME 89.5 fL (80.0-100.0); MEAN PLATELET VOLUME 8.3 fL (7.4-11.0); MONOCYTES # (AUTO) 0.7 x10^3/uL (0.3-0.8); MONOCYTES % (AUTO) 1.7 % (0.0-13.0); NEUTROPHILS # (AUTO) 39.1 x10^3/uL (2.2-4.8); NEUTROPHILS % (AUTO) 94.7 % (42.0-75.0); PLATELET COUNT 272 X10^3/uL (150.0-450.0); RED BLOOD COUNT 4.03 X10^6/uL (4.7-6.0); RED CELL DISTRIBUTION WIDTH 13.9 % (11.6-16.5)
[2017-09-27 21:40] LABS: SERUM ACETONE SMALL (NEGATIVE)
[2017-09-27 21:41] LABS: BLOOD UREA NITROGEN 25 mg/dL (7-18); CALCIUM 7.2 mg/dL (8.5-10.1); CHLORIDE 103 mmol/L (98-107); COR NA(FOR HYPERGLY) 135 mmol/L (136-145); CREATININE 1.65 mg/dL (0.70-1.30); SODIUM 131 mmol/L (136-145); eGFR BLACK RACES > 60 (>60); eGFR NON BLACK RACES 50 (>60)
[2017-09-27 21:42] LABS: WHITE BLOOD COUNT 41.3 X10^3/uL (3.6-10.0)
[2017-09-27 21:46] LABS: ALANINE AMINOTRANSFERASE 15 Units/L (12-78); ALBUMIN 1.5 g/dL (3.4-5.0); ALKALINE PHOSPHATASE 119 Units/L (46-116); ASPARTATE AMINO TRANSFERASE 25 Units/L (15-37); COR CA(FOR HYPOALB) 9.2 mg/dL (8.5-10.1); MAGNESIUM 2.3 mg/dL (1.7-2.9); TOTAL PROTEIN 5.4 g/dL (6.4-8.2)
[2017-09-27 21:48] LABS: CARBON DIOXIDE 12.7 mmol/L (21-32)
[2017-09-27 22:09] LABS: BAND NEUTROPHILS % 39 % (0-10); METAMYELOCYTES % 4; MYELOCYTES % 2; PLATELET MORPHOLOGY COMMENT NORMAL (NORMAL)
[2017-09-27 22:15] LABS: TOXIC GRANULATION 2+
[2017-09-27] MEDS: NYSTATIN POWDER TOP SCH (22:21)
[2017-09-27] MEDS: MERREM VIAL 1 GM in NS 100 ML IV + SPIKE MINIBAG* 100 ML IV SCH (22:45)
[2017-09-28] MEDS ORDERED: ZOFRAN INJ 4 MG VIAL ONE (00:39)
[2017-09-28] MEDS: REGLAN INJ 10 MG VIAL IVP SCH ×2 (01:35→09:16)
--- NOTE | 2017-09-28 01:39 | RAD ---
Abdomen radiograph-single view Indication: NG tube placement Findings: NG tube is directed towards stomach, , coiled over the stomach. There is marked distention of bowel. Impression: NG tube projects over the stomach. High-grade bowel obstruction also suggested. Surgical follow-up recommended. Reported By:
[2017-09-28] MEDS ORDERED: NS 1000 ML 1,000 ML IV SCH (04:00)
[2017-09-28 05:38] LABS: ABG BASE EXCESS -17.2 mmol/L (-2.0-2.0)
[2017-09-28 05:40] LABS: ABG HCO3 8.1 mmol/L (22-26)
[2017-09-28 05:57] LABS: BASOPHILS % (AUTO) 0.1 % (0.2-1.0); HEMATOCRIT 35.3 % (42.0-54.0); HEMOGLOBIN 12.3 g/dL (13.5-18.0); LYMPHOCYTES # (AUTO) 1.3 X10^3/uL (1.3-2.9); LYMPHOCYTES % (AUTO) 3.2 % (21.0-51.0); MEAN CORPUSCULAR HEMOGLOBIN 30.9 pg (27.0-34.0); MEAN CORPUSCULAR HGB CONC 34.8 g/dL (33.0-35.0); MEAN CORPUSCULAR VOLUME 88.8 fL (80.0-100.0); MEAN PLATELET VOLUME 8.8 fL (7.4-11.0); MONOCYTES # (AUTO) 0.6 x10^3/uL (0.3-0.8); MONOCYTES % (AUTO) 1.5 % (0.0-13.0); NEUTROPHILS # (AUTO) 39.4 x10^3/uL (2.2-4.8); NEUTROPHILS % (AUTO) 95.2 % (42.0-75.0); PLATELET COUNT 286 X10^3/uL (150.0-450.0); RED BLOOD COUNT 3.98 X10^6/uL (4.7-6.0); RED CELL DISTRIBUTION WIDTH 14.1 % (11.6-16.5)
[2017-09-28 06:11] LABS: ALBUMIN 1.4 g/dL (3.4-5.0); CALCIUM 7.4 mg/dL (8.5-10.1); COR CA(FOR HYPOALB) 9.5 mg/dL (8.5-10.1); CREATININE 2.14 mg/dL (0.70-1.30); TOTAL PROTEIN 5.6 g/dL (6.4-8.2); WHITE BLOOD COUNT 41.4 X10^3/uL (3.6-10.0)
[2017-09-28] MEDS: NS 1000 ML 1,000 ML IV SCH (06:14)
[2017-09-28 06:32] LABS: CARBON DIOXIDE 11.1 mmol/L (21-32)
[2017-09-28] MEDS: ZOSYN VIAL 4.5 GM 4.5 GM in NS 100 ML IV + SPIKE MINIBAG* 100 ML IV SCH (06:38)
[2017-09-28] MEDS: MERREM VIAL 1 GM in NS 100 ML IV + SPIKE MINIBAG* 100 ML IV SCH (06:38)
[2017-09-28 06:56] LABS: BAND NEUTROPHILS % 29 % (0-10)
[2017-09-28 06:57] LABS: CRENATED RBC 1+; METAMYELOCYTES % 10; PLATELET MORPHOLOGY COMMENT NORMAL (NORMAL); TOXIC GRANULATION 2+
[2017-09-28] MEDS ORDERED: GLUCOPHAGE PO SCH (07:00)
[2017-09-28] MEDS ORDERED: ZESTRIL TAB 5 MG PO SCH (09:00)
[2017-09-28] MEDS ORDERED: VANCOMYCIN HCL 500 MG VIAL 250 MG, VANCOMYCIN HCL 1 GM VIAL 1 GM in D5W 250 ML IV 250 ML IV SCH (09:00)
[2017-09-28] MEDS ORDERED: PEPCID 20 MG IV PREMIX* 20 MG/50 ML BAG IV SCH (09:00)
[2017-09-28] MEDS: PROTONIX INJ 40 MG VIAL IVP SCH (09:15)
[2017-09-28] MEDS: NYSTATIN POWDER TOP SCH (09:16)
--- NOTE | 2017-09-28 09:41 | CT ---
HISTORY: Abdominal pain, nausea, vomiting Study: CT abdomen pelvis without contrast Comparison: Abdominal plain film 09/28/2017 1:33 a.m. Technique: Axial noncontrast images with coronal and sagittal reformats. Dose reduction procedures we re used with mA/kv adjusted for body size. Findings: There is a minimal left pleural effusion present. The lung bases are otherwise clear. The liver, sple en, adrenal glands, and pancreas are within normal limits to the limitations of an unenhanced examina tion. No opaque stones are visible within the gallbladder. The kidneys are unobstructed and without s tones. No ureteral calculi are identified. No intraperitoneal or retroperitoneal lymphadenopathy of s ignificance is identified. There are no findings suggestive of diverticulitis or colitis. There is di latation of nearly the entire small bowel. There is no discrete transition point to more normal small bowel. There is diffuse severe pneumatosis intestinalis involving to some extent the entire small lewis wel but most prominently affecting the jejunum and proximal ileum there is no definite evidence for p ortal venous gas as yet although gas is identified within multiple mesenteric veins and the superior mesenteric vein. Fluid and induration can be seen within the mesentery . These findings are highly urias ggestive of severely ischemic small bowel. Expedient surgical evaluation is recommended.. Examination of the pelvis demonstrated no evidence for pelvic masses, pelvic lymphadenopathy, or bladder abnorma lity. There is a Lozano catheter within the bladder. There is minimal fluid within the pelvis. No lyti c or blastic skeletal lesions are identified. IMPRESSION: Diffusely dilated fluid-filled small bowel demonstrated severe pneumatosis intestinalis with associat ed gas within the mesenteric veins and superior mesenteric vein all suggestive of severe small bowel ischemia. Expedient surgical evaluation is recommended. Findings were given to the patient's nurse Kala Jasso by ga 09/28/2017 9:38 a.m.. The requesting ph ysician was unavailable. The nurse was instructed as to the severity of the findings and was to pass the written report to the surgeon. Reported By:
[2017-09-28] MEDS: MILK OF MAGNESIA PO SCH (09:50)
[2017-09-28] MEDS ORDERED: SODIUM BICARBONATE 8.4% INJ ADULT IVP NR (11:00)
[2017-09-28] MEDS ORDERED: VANCOMYCIN HCL 1 GM VIAL 1 GM in D5W 250 ML IV 250 ML IV SCH (11:00)
[2017-09-28 11:05] VITALS: BP 99/52
[2017-09-28] MEDS ORDERED: FLAGYL IV PREMIX 500 MG BAG 500 MG/100 ML BAG IV ONE (11:19)
[2017-09-28] MEDS ORDERED: D5W IV NR ×2 (12:00)
[2017-09-28] MEDS ORDERED: SODIUM BICARBONATE IV NR ×2 (12:00)
[2017-09-28] MEDS ORDERED: PHARMACY COMMENT IV SCH ×2 (13:30)
[2017-09-28] MEDS ORDERED: FLAGYL IV PREMIX 500 MG BAG 500 MG/100 ML BAG IV SCH (15:00)
--- NOTE | 2017-10-01 20:05 | PCM.DCPLAN ---
Discharge Summary - Admission Date Date of Admission: 09/25/17 - Discharge Date Discharge Date: 09/28/17 - Admission Diagnoses (1) DKA (diabetic ketoacidoses) Status: Acute (2) Dehydration Status: Acute (3) Diabetes mellitus type I Status: Acute (4) Facial cellulitis Status: Acute - Discharge Diagnoses Discharge Diagnosis: SAME ADMISSION DIAGNOSIS AND INCLUDE #1 SEVERE PNEUMATOSIS INTESTINALIS - Discharge Medications Discharge Medications: Aspirin [Aspirin EC] 81 mg PO DAILY 09/25/17 [History] Glipizide [Glucotrol] 5 mg PO BID 09/25/17 [History] Metformin HCl [Glucophage] 1,000 mg PO BID 09/25/17 [History] Clindamycin HCl 1 cap PO TID 09/26/17 [History] - Hospital Course Vital Signs: Temperature 97.8 F Pulse Rate [Right Brachial] 110 Respiratory Rate 35 Blood Pressure [Right Arm] 113/75 Blood Pressure [Left Arm] 99/52 Blood Pressure 155/91 O2 Sat by Pulse Oximetry 100 Latest Lab Results: Laboratory Last Values WBC 41.4 X10^3/uL (3.6-10.0) H* 09/28/17 05:25 RBC 3.98 X10^6/uL (4.7-6.0) L 09/28/17 05:25 Hgb 12.3 g/dL (13.5-18.0) L 09/28/17 05:25 Hct 35.3 % (42.0-54.0) L 09/28/17 05:25 MCV 88.8 fL (80.0-100.0) 09/28/17 05:25 MCH 30.9 pg (27.0-34.0) 09/28/17 05:25 MCHC 34.8 g/dL (33.0-35.0) 09/28/17 05:25 RDW 14.1 % (11.6-16.5) 09/28/17 05:25 Plt Count 286 X10^3/uL (150.0-450.0) 09/28/17 05:25 Plt Count Comment Adequate (ADEQUATE) 09/28/17 05:25 MPV 8.8 fL (7.4-11.0) 09/28/17 05:25 Neut % (Auto) 95.2 % (42.0-75.0) H 09/28/17 05:25 Lymph % (Auto) 3.2 % (21.0-51.0) L 09/28/17 05:25 [place] % (Auto) 1.5 % (0.0-13.0) 09/28/17 05:25 Eos % (Auto) 0.0 % (0.9-2.9) L 09/28/17 05:25 Baso % (Auto) 0.1 % (0.2-1.0) L 09/28/17 05:25 Neut # (Auto) 39.4 x10^3/uL (2.2-4.8) H 09/28/17 05:25 Lymph # (Auto) 1.3 X10^3/uL (1.3-2.9) 09/28/17 05:25 [place] # (Auto) 0.6 x10^3/uL (0.3-0.8) 09/28/17 05:25 Eos # (Auto) 0.0 x10^3/uL (0.0-0.2) 09/28/17 05:25 Baso # (Auto) 0.0 X10^3/uL (0.0-0.1) 09/28/17 05:25 Absolute Nucleated RBC 0.0 /100WBC 09/28/17 05:25 Total Counted 100 09/28/17 05:25 Neutrophils % (Manual) 56 % (39-76) 09/28/17 05:25 Band Neutrophils % 29 % (0-10) H 09/28/17 05:25 Lymphocytes % (Manual) 4 % (13-43) L 09/28/17 05:25 Monocytes % (Manual) 1 % (4-9) L 09/28/17 05:25 Eosinophils % (Manual) 2 % (0-6) 09/25/17 17:04 Metamyelocytes % 10 09/28/17 05:25 Myelocytes % 2 09/27/17 21:20 Atypical Lymphocytes 6 09/25/17 17:04 Toxic Granulation 2+ A 09/28/17 05:25 Plt Morphology Comment Normal (NORMAL) 09/28/17 05:25 RBC Morphology Abnormal (NORMAL) 09/28/17 05:25 Crenated Cell 1+ A 09/28/17 05:25 Sample Site Lbra 09/28/17 05:30 ABG pH 7.240 (7.35-7.45) L 09/28/17 05:30 ABG pCO2 19.0 mmHg (35.0-45.0) L* 09/28/17 05:30 ABG pO2 87.0 mmHg (80.0-100.0) 09/28/17 05:30 ABG HCO3 8.1 mmol/L (22-26) L* 09/28/17 05:30 ABG O2 Saturation 95.0 % (90-100) 09/28/17 05:30 ABG Base Excess -17.2 mmol/L (-2.0-2.0) L 09/28/17 05:30 Slick Test Na 09/28/17 05:30 A-a Gradient 39.0 mmHg 09/28/17 05:30 FiO2 21.000 09/28/17 05:30 Blood Gas Comments Zack abg well-mtf 09/28/17 05:30 Sodium 130 mmol/L (136-145) L 09/28/17 05:25 Corrected Sodium 134 mmol/L (136-145) L 09/28/17 05:25 Potassium 3.7 mmol/L (3.5-5.1) 09/28/17 05:25 Chloride 102 mmol/L (98-107) 09/28/17 05:25 Carbon Dioxide 11.1 mmol/L (21-32) L* 09/28/17 05:25 BUN 30 mg/dL (7-18) H 09/28/17 05:25 Creatinine 2.14 mg/dL (0.70-1.30) H 09/28/17 05:25 Est GFR (MDRD) Af Amer 45 (>60) L 09/28/17 05:25 Est GFR (MDRD) Non-Af 37 (>60) L 09/28/17 05:25 Glucose 253 mg/dL (65-99) H 09/28/17 05:25 POC Glucose (mg/dL) 207 mg/dL (65-99) H 09/28/17 11:05 Lactic Acid 1.9 mmol/L (0.4-2.0) 09/28/17 07:52 Calcium 7.4 mg/dL (8.5-10.1) L 09/28/17 05:25 Corrected Calcium 9.5 mg/dL (8.5-10.1) 09/28/17 05:25 Magnesium 2.3 mg/dL (1.7-2.9) 09/27/17 21:20 Total Bilirubin 0.40 mg/dL (0.2-1.0) 09/28/17 05:25 AST 31 Units/L (15-37) 09/28/17 05:25 ALT 24 Units/L (12-78) 09/28/17 05:25 Alkaline Phosphatase 125 Units/L (46-116) H 09/28/17 05:25 Total Protein 5.6 g/dL (6.4-8.2) L 09/28/17 05:25 Albumin 1.4 g/dL (3.4-5.0) L 09/28/17 05:25 Globulin 4.2 g/dL (2.5-4.5) 09/28/17 05:25 Albumin/Globulin Ratio 0.3 Ratio (1.1-2.1) L 09/28/17 05:25 Specimen Type Clean catch urine 09/26/17 04:58 Urine Color Yellow (YELLOW) 09/26/17 04:58 Urine Appearance Slightly hazy (CLEAR) 09/26/17 04:58 Urine pH 5.0 (5.0 - 8.0) 09/26/17 04:58 Ur Specific [place] 1.020 (1.000-1.030) 09/26/17 04:58 Urine Protein 2+ (NEGATIVE) 09/26/17 04:58 Urine Glucose (UA) 4+ (NEGATIVE) 09/26/17 04:58 Urine Ketones 4+ (NEGATIVE) 09/26/17 04:58 Urine Occult Blood 4+ (NEGATIVE) 09/26/17 04:58 Urine Nitrite Negative (NEGATIVE) 09/26/17 04:58 Urine Bilirubin Negative (NEGATIVE) 09/26/17 04:58 Urine Acetone Large (NEGATIVE) 09/27/17 18:21 Urine Urobilinogen Normal (NORMAL) 09/26/17 04:58 Ur Leukocyte Esterase Negative (NEGATIVE) 09/26/17 04:58 Urine RBC 0-2 /HPF (NONE SEEN) 09/26/17 04:58 Urine WBC 0-2 /HPF (NONE SEEN) 09/26/17 04:58 Ur Squamous Epith Cells Few /HPF (NEGATIVE) 09/26/17 04:58 Urine Bacteria Trace /HPF (NEGATIVE) 09/26/17 04:58 Urine Mucus Moderate /HPF (NEGATIVE) 09/26/17 04:58 Urine Yeast Few /HPF (NEGATIVE) 09/26/17 04:58 Ur Culture Indicated? No/not indicated 09/26/17 04:58 Vancomycin Trough 11.0 ug/mL (15-20) L 09/26/17 20:47 Acetone, Semi-Quant Small (NEGATIVE) H 09/28/17 05:25 Hospital Course: 37 WM ADMITTED ON 09/25 WITH FACIAL CELLULITIS AND DENTAL ABSCESS FOLLOWING EXTRACTIONS. PT PLACED ON IV VANCOMYCIN AND IV ZOSYN. HAD CONTINUE LEUKOCYTOSIS AND CO PAIN. PT DOES HAVE SLIGHT IMPROVEMENT IN SWELLING. PT STATES IT IS EASIER TO TALK AND SWALLOW. WBC 40.4 MEROPENEM ADDED. DKA WAS TREATED. PATIENT DEVELOPED ABD PAIN WITH NAUSEA AND VOMITING. CT ABD REVEALED SEVERE PNEUMATOSIS INTESTINALIS. PATIENT WAS LIFE FLIGHTED TO [facility] FOR FURTHER CARE. - Discharge Plan Disposition: [facility] Condition: Stable - Follow ups/Referrals Follow ups/Referrals: AMADEO MOREL [Primary Care Provider] - - Instructions Instructions: Piperacillin; Tazobactam injection, Cellulitis, Adult, Meropenem injection, Small Bowel Obstruction, Vancomycin injection, E. Coli Infection
== END 2017-09-28 12:22 | disposition short-term general hospital (02) | DRG 602 ==
LOC: MED/SURG 15:26 → ICU 09-27 15:43
PROVIDERS: ADMIT Internal Medicine; ATTEND Internal Medicine
PROC: 05H533Z Insertion of Infusion Device into Right Subclavian Vein, Percutaneous Approach (ICD-10-PCS; principal; 2017-09-27)
PROC: 0D9670Z Drainage of Stomach with Drainage Device, Via Natural or Artificial Opening (ICD-10-PCS; 2017-09-28)
DX: L03.211 Cellulitis of face (principal); E10.10 Type 1 diabetes mellitus with ketoacidosis without coma; K63.89 Other specified diseases of intestine; B96.29 Other Escherichia coli [E. coli] as the cause of diseases classified elsewhere; E78.2 Mixed hyperlipidemia; I10 Essential (primary) hypertension; D72.828 Other elevated white blood cell count; R41.82 Altered mental status, unspecified; R11.2 Nausea with vomiting, unspecified; R10.84 Generalized abdominal pain; K04.7 Periapical abscess without sinus; E86.0 Dehydration; I87.2 Venous insufficiency (chronic) (peripheral); E66.01 Morbid (severe) obesity due to excess calories
CPT/HCPCS: 36415; 36556; 36600; 70486; 71045; 71046; 74018; 74022; 74176; 80053; 80202; 81001; 81002; 82009; 82565; 82803; 82947; 83605; 83735; 85025; 87040; 87070; 87075; 87077; 87186; A4222; C9113; S0028; S0030; S0181; J1815; J1885; J2001; J2175; J2185; J2405; J2543; J2550; J2765; J3370; J3490